=== PATIENT | female | born 1945 | race Caucasian/White ===

== ENCOUNTER 2018-06-27 09:01 | Inpatient (IN) ==
[2018-06-27] MEDS ORDERED: *HR* LORazepam 2 MG/ML VIAL IVP ONE ×4 (09:20→19:26)
--- NOTE | 2018-06-27 09:29 | Emergency Department Note ---
Disposition Clinical Impression: Dilated bile duct Abdominal pain Qualifiers: Abdominal location: right upper quadrant Qualified Code(s): R10.11 - Right upper quadrant pain Disposition: Admitted As Inpatient Time of Disposition: 12:15 General Adult HPI - General Chief complaint: ED Abdominal Pain Stated complaint: abd pain Time Seen by Provider: 06/27/18 09:06 Source: patient Mode of arrival: ambulatory Limitations: no limitations Nursing Notes Reviewed: Yes Vital Signs Reviewed: Yes - History of Present Illness HPI Narrative: 73 year old female with history of diabetes, stroke and anxiety presents with abdominal pain. Patient stated she has abdomen uncomfortable and burping for a while. In the past few days patient felt the symptoms getting worse. Associate with nausea. No vomiting. Pt reported poor appetite and losing weight in the past one week. Last meal was last night. Pt only ate some jello. Patient also complained of left side chest uncomfortable associate with shortness of breath this morning. Pt had appendiectomy and cholecystectomy years ago. No chills and fever. Daughter stated patient moved into her house 3 months ago. Patient went through a lot of stress recently. Psychiatrist took off Tramadol and Klonopin from her a month ago. Pt is on Plavix for stroke. Pt will have breast biopsy in one week. Onset (ago): day(s) (2) Location: abdomen Radiation: non-radiation Pain Scale: 7 - Related Data Home Medications Medication Instructions Recorded Confirmed Buspirone HCl [Buspar] 10 mg PO BID 04/15/18 04/15/18 Clopidogrel Bisulfate [Plavix] 75 mg PO 04/15/18 Dicyclomine Hcl [Bentyl] 20 mg PO 04/15/18 Esomeprazole Magnesium [Nexium] 40 mg PO 04/15/18 Fluticasone Propionate Nasal 120 spray NS 04/15/18 [Flonase] Gabapentin [Gralise] 300 mg PO 04/15/18 Loratadine 04/15/18 Sitagliptin Phosphate [Januvia] 50 mg PO 04/15/18 Allergies Allergy/AdvReac Type Severity Reaction Status Date / Time aspirin Allergy See Verified 04/15/18 10:01 Comments codeine Allergy See Verified 04/15/18 10:01 Comments morphine Allergy See Verified 04/15/18 10:01 Comments Penicillins [PCN] Allergy See Verified 04/15/18 10:01 Comments Constitutional: Denies: fever, chills Eyes: Denies: eye pain ENT ED: Denies: ear pain Cardiovascular: Denies: chest pain Respiratory: Denies: cough Gastrointestinal: Reports: abdominal pain, nausea. Denies: vomiting, diarrhea Genitourinary: Denies: urgency Musculoskeletal: Denies: back pain Integumentary: Denies: rash Neurological: Denies: headache Psychiatric: Denies: anxiety Endocrine: Denies: fatigue Hematological/Lymphatic: Denies: easy bleeding Allergic/Immunologic: Denies: facial swelling Past Medical History - Past Medical History Medical history: Reports: diabetes, hypertension Psychiatric history: Reports: anxiety, depression ATM MECHANIC history: Reports: no ATM MECHANIC history - Social History Smoking Status: 2nd Hand Smoke Exposure Smokeless Tobacco Status: No Alcohol use: Reports: none Drug use: Reports: none Physical Exam - General Limitations: no limitations General appearance: alert - Head Head exam: atraumatic - Eye Eye exam: Present: normal appearance - ENT ENT exam: normal exam - Neck Neck exam: Present: normal inspection - Chest Chest inspection: Present: normal inspection - Respiratory Respiratory exam: Present: normal lung sounds bilaterally - Cardiovascular Cardiovascular exam: Present: regular rate - Abdominal Exam Abdominal exam: Present: soft, tenderness Abdominal tenderness: Present: RUQ, RLQ - Extremities Exam Extremities exam: Present: normal inspection, full ROM. Absent: tenderness - Back Exam Back exam: Present: normal inspection - Neurological Exam Neurological exam: Present: alert, oriented X3 - Psychiatric Psychiatric exam: Present: normal affect - Skin Skin exam: Present: warm, intact Course Vital Signs Temperature 98.1 F 06/27/18 09:03 Pulse Rate 81 06/27/18 09:03 Respiratory Rate 18 06/27/18 09:03 Blood Pressure 145/81 06/27/18 09:03 O2 Sat by Pulse Oximetry 95 06/27/18 09:03 Temperature 97.7 F 06/27/18 19:03 Pulse Rate 92 06/27/18 19:03 Respiratory Rate 16 06/27/18 19:03 Blood Pressure 141/91 06/27/18 19:03 O2 Sat by Pulse Oximetry 95 06/27/18 19:03 Oxygen Delivery Oxygen Delivery Room Air Medical Decision Making - MDM Narrative Medical decision making narrative: 73 year old female presents with worsening abdominal pain for a week. Associate with burping, nausea and poor appetite. No chills and fever. History of diabetes, stroke, anxiety, cholecystectomy and appediectomy. Physical exam: pt seems anxious, bilateral lungs are clear, abdomen soft, RUQ and RLQ tender to palpation. Labs: normal white cell, normal liver enzyme. abdomen CT: dilated bile duct, maligant of ampullary is not excluded. MRCP is suggested. Dr. Lynch has seen the patient and agrees to admit patient for persistent abdominal pain, decreasing appetite. Spoke with GI dr. Hillman, pt will be on NPO. She will have MRCP today. - Lab Data Result diagrams: 06/27/18 09:20 06/27/18 09:20 Lab Results 06/27/18 06/27/18 06/27/18 Range/Units 09:20 09:20 09:20 WBC 5.5 (4.3-11.1) K/mcL RBC 4.98 H (3.82-4.97) M/mcL Hgb 12.8 (11.5-15.4) g/dL Hct 39.9 (35.3-44.9) % MCV 80.1 L (83.0-100.0) fL MCH 25.7 L (28.0-33.3) pg MCHC 32.1 (31.6-35.5) g/dL RDW 15.9 H (11.5-14.5) % Plt Count 242 (140-400) K/mcL MPV 8.6 L (9.4-12.4) fL Immature Gran % 0.2 (0-4) % Seg Neutrophils % 41.6 % Lymphocytes % 43.0 % Monocytes % 11.7 % Eosinophils % 2.6 % Basophils % 0.9 % Neutrophils # 2.3 (1.6-8.9) K/mcL Lymphocytes # 2.4 (0.6-4.6) K/mcL Monocytes # 0.6 (0.0-1.3) K/mcL Eosinophils # 0.1 (0.0-0.6) K/mcL Basophils # 0.1 (0.0-0.2) K/mcL Sodium 139 (136-145) mEq/L Potassium 4.1 (3.5-5.1) mEq/L Chloride 104 (98-107) mEq/L Carbon Dioxide 23 (23-29) mEq/L BUN 6 L (8-23) mg/dL Creatinine 0.56 L (0.60-1.20) mg/dL Est GFR ( Amer) > 60 (> 60) Est GFR (Non-Af Amer) > 60 (> 60) BUN/Creatinine Ratio 11 (6-26) Glucose 125 H (70-105) mg/dL Est Mean Plasma Glucose 154 mg/dl Hemoglobin A1c 7.0 H ( - 5.6) % Calculated Osmolality 287 (280-300) Calcium 9.7 (8.6-10.3) mg/dL Total Bilirubin 0.6 (0.3-1.0) mg/dL AST 20 (13-39) Units/L ALT 24 (7-52) Units/L Alkaline Phosphatase 69 (34-104) Units/L Troponin I < 0.03 (< 0.04) ng/mL Serum Total Protein 7.3 (6.4-8.9) g/dL Albumin 4.6 (3.5-5.7) g/dL Globulin 2.7 (2.4-3.5) g/dL Albumin/Globulin Ratio 1.7 (1.1-2.2) Lipase 22 (11-82) Units/L Urine Color (Yellow) Urine Clarity (Clear) Urine pH (5.0-8.0) pH Units Ur Specific [place] (1.010-1.025) Urine Protein (Neg-Trace) mg/dL Urine Glucose (UA) (Normal) mg/dL Urine Ketones (Negative) mg/dL Urine Blood (Negative) Urine Nitrite (Negative) Urine Bilirubin (Negative) Urine Urobilinogen (Normal) mg/dL Ur Leukocyte Esterase (Negative) Ur Culture Indicated? (NO) 06/27/18 Range/Units 11:36 WBC (4.3-11.1) K/mcL RBC (3.82-4.97) M/mcL Hgb (11.5-15.4) g/dL Hct (35.3-44.9) % MCV (83.0-100.0) fL MCH (28.0-33.3) pg MCHC (31.6-35.5) g/dL RDW (11.5-14.5) % Plt Count (140-400) K/mcL MPV (9.4-12.4) fL Immature Gran % (0-4) % Seg Neutrophils % % Lymphocytes % % Monocytes % % Eosinophils % % Basophils % % Neutrophils # (1.6-8.9) K/mcL Lymphocytes # (0.6-4.6) K/mcL Monocytes # (0.0-1.3) K/mcL Eosinophils # (0.0-0.6) K/mcL Basophils # (0.0-0.2) K/mcL Sodium (136-145) mEq/L Potassium (3.5-5.1) mEq/L Chloride (98-107) mEq/L Carbon Dioxide (23-29) mEq/L BUN (8-23) mg/dL Creatinine (0.60-1.20) mg/dL Est GFR ( Amer) (> 60) Est GFR (Non-Af Amer) (> 60) BUN/Creatinine Ratio (6-26) Glucose (70-105) mg/dL Est Mean Plasma Glucose mg/dl Hemoglobin A1c ( - 5.6) % Calculated Osmolality (280-300) Calcium (8.6-10.3) mg/dL Total Bilirubin (0.3-1.0) mg/dL AST (13-39) Units/L ALT (7-52) Units/L Alkaline Phosphatase (34-104) Units/L Troponin I (< 0.04) ng/mL Serum Total Protein (6.4-8.9) g/dL Albumin (3.5-5.7) g/dL Globulin (2.4-3.5) g/dL Albumin/Globulin Ratio (1.1-2.2) Lipase (11-82) Units/L Urine Color Yellow (Yellow) Urine Clarity Clear (Clear) Urine pH 6.5 (5.0-8.0) pH Units Ur Specific [place] > 1.030 H (1.010-1.025) Urine Protein Negative (Neg-Trace) mg/dL Urine Glucose (UA) Normal (Normal) mg/dL Urine Ketones Negative (Negative) mg/dL Urine Blood Negative (Negative) Urine Nitrite Negative (Negative) Urine Bilirubin Negative (Negative) Urine Urobilinogen Normal (Normal) mg/dL Ur Leukocyte Esterase Negative (Negative) Ur Culture Indicated? NO (NO) - Radiology Data Radiology results reviewed: Yes I reviewed the patient's radiology results. FINDINGS: Lower Chest: The lung bases are clear. Organs: There is mild diffuse low-attenuation of the liver. The gallbladder has been surgically removed. There is mild intrahepatic biliary ductal dilatation. The common bile duct is also dilated and measures 10 mm. The pancreas appears unremarkable. The spleen and adrenal glands are also unremarkable. There is symmetric enhancement of the kidneys. No hydronephrosis is seen. GI/Bowel: Evaluation of the bowel is limited as no enteric contrast was given. No dilated loops of bowel are seen. I do not see a dilated appendix. There is scattered diverticular disease involving the colon but no findings to suggest active inflammation. Pelvis: No pelvic masses or fluid collections are seen. Peritoneum/Retroperitoneum: The abdominal aorta is not aneurysmal. There are shotty mesenteric and retroperitoneal lymph nodes but no lymphadenopathy is seen. Bones/Soft Tissues: No acute bony abnormalities are noted. CT/CT abd pelvis w iv no oral IMPRESSION: 1. Mild intrahepatic and moderate extrahepatic biliary ductal dilatation. This can be seen in a postcholecystectomy state. However, I would recommend correlation with liver function studies. An ampullary malignancy cannot be excluded. Further evaluation with ERCP or MRCP is suggested if clinically warranted. 2. Mild hepatic steatosis. 3. Diverticulosis without obvious inflammation. D/ / Jem Padron MD / Jem Padron MD Interpreting Provider: Jem Padron MD Attestation Statement - Attestation Attestation: Medical screening examination/treatment/procedure(s) were conducted as a shared visit with non-physician practitioner(s) and myself. I personally evaluated the patient during the encounter. Patient presenting for generalized abdominal pain as well as decreased appetite. Patient overall symptoms been getting worse over the last several days. Patient does have previous cholecystectomy. Patient does have pain that is worse in the right upper quadrant with mild tenderness without rebound or guarding.. She will undergo further blood work as well as CT scan imaging. CT with concern for biliary duct dilation. Given the patient's continued symptoms bright upper quadrant abdominal pain as well as decreased appetite and not able to tolerate by mouth with the emergency department, patient will be admitted for further workup. Patient case was discussed with GI. Patient will undergo further testing as indicated by specialist.
[2018-06-27] MEDS ORDERED: Isovue-370 500 ML BOTTLE IVP ONE (09:36)
[2018-06-27 09:56] LABS: Basophils # 0.1 K/mcL (0.0-0.2); Basophils % 0.9 %; Eosinophils # 0.1 K/mcL (0.0-0.6); Eosinophils % 2.6 %; Hematocrit 39.9 % (35.3-44.9); Hemoglobin 12.8 g/dL (11.5-15.4); Immature Granulocytes % 0.2 % (0-4); Lymphocytes # 2.4 K/mcL (0.6-4.6); Mean Corpuscular HGB Conc 32.1 g/dL (31.6-35.5); Mean Corpuscular Hemoglobin 25.7 pg (28.0-33.3); Mean Corpuscular Volume 80.1 fL (83.0-100.0); Mean Platelet Volume 8.6 fL (9.4-12.4); Monocytes # 0.6 K/mcL (0.0-1.3); Monocytes % 11.7 %; Neutrophils # 2.3 K/mcL (1.6-8.9); Platelet Count 242 K/mcL (140-400); Red Blood Count 4.98 M/mcL (3.82-4.97); Red Cell Distribution Width 15.9 % (11.5-14.5); Segmented Neutrophils % 41.6 %
[2018-06-27 10:03] LABS: Alanine Aminotransferase 24 Units/L (7-52); Albumin 4.6 g/dL (3.5-5.7); Albumin/Globulin Ratio 1.7 (1.1-2.2); Alkaline Phosphatase 69 Units/L (34-104); Aspartate Amino Transferase 20 Units/L (13-39); BUN/Creatinine Ratio 11 (6-26); Bilirubin,Total 0.6 mg/dL (0.3-1.0); Blood Urea Nitrogen 6 mg/dL (8-23); Calcium 9.7 mg/dL (8.6-10.3); Carbon Dioxide 23 mEq/L (23-29); Chloride 104 mEq/L (98-107); Globulin 2.7 g/dL (2.4-3.5); Glucose 125 mg/dL (70-105); Lipase 22 Units/L (11-82); Osmolality,Calculated 287 (280-300); Potassium 4.1 mEq/L (3.5-5.1); Sodium 139 mEq/L (136-145); Total Protein 7.3 g/dL (6.4-8.9); Troponin I < 0.03 ng/mL (< 0.04); eGFR For Non-African Americans > 60 (> 60)
--- NOTE | 2018-06-27 11:42 | Electrocardiograph Report ---
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
[2018-06-27] MEDS ORDERED: *HR* OxyCODONE/APAP 5/325 TABLET PO ONE (11:50)
[2018-06-27 11:59] LABS: Bilirubin,Urine Negative (Negative); Blood,Urine Negative (Negative); Clarity,Urine Clear (Clear); Color,Urine Yellow (Yellow); Glucose,Urine (UA) Normal (Normal); Ketones,Urine Negative (Negative); Leukocyte Esterase,Urine Negative (Negative); Nitrite,Urine Negative (Negative); PH,Urine 6.5 pH Units (5.0-8.0); Protein,Urine Negative (Neg-Trace); Specific Gravity,Urine > 1.030 (1.010-1.025); Urobilinogen,Urine Normal (Normal)
[2018-06-27] MEDS ORDERED: *HR* Propofol 200 MG/20 ML VIAL IVP ONE (13:36)
[2018-06-27] MEDS ORDERED: Lidocaine -MPF 2% 2 ML VIAL ONE (13:37)
[2018-06-27] MEDS ORDERED: Ondansetron 4 MG/2 ML VIAL ONE (13:45)
--- NOTE | 2018-06-27 14:21 | Anesthesia Evaluation PreOp ---
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 (3 years ago,), Other (left hand paresthesia) Other Medical History: Diabetes Type II, Other (Anxiety) Anesthesia History: No Prior Anesthetic Complications : No Alcohol Use: none Drug use: none Medications and Allergies Azithromycin [Azithromycin 6-Tab Pack] 250 mg PO PER PKG DI #6 tab 04/15/18 [Rx] Buspirone HCl [Buspar] 10 mg PO BID 04/15/18 [History] Clopidogrel Bisulfate [Plavix] 75 mg PO 04/15/18 [History] Dicyclomine Hcl [Bentyl] 20 mg PO 04/15/18 [History] Esomeprazole Magnesium [Nexium] 40 mg PO 04/15/18 [History] Fluticasone Propionate Nasal [Flonase] 120 spray NS 04/15/18 [History] Gabapentin [Gralise] 300 mg PO 04/15/18 [History] Loratadine 04/15/18 [History] Promethazine/Dextromethorphan [Promethazine-Dm Syrup] 5 ml PO Q6HR PRN #120 ml 04/15/18 [Rx] Sitagliptin Phosphate [Januvia] 50 mg PO 04/15/18 [History] methylPREDNISolone [Medrol] 4 mg PO TAPER #21 tablet 04/15/18 [Rx] Allergy/AdvReac Type Severity Reaction Status Date / Time aspirin Allergy See Verified 04/15/18 10:01 Comments codeine Allergy See Verified 04/15/18 10:01 Comments morphine Allergy See Verified 04/15/18 10:01 Comments Penicillins [PCN] Allergy See Verified 04/15/18 10:01 Comments - Meds/Allergy Pre-op Review Medications Reviewed: Yes Allergies Reviewed: Yes Beta Blockers on Current Med List: No Anesthesia Results - Labs 06/27/18 09:20 06/27/18 09:20 - Imaging EKG: report reviewed (SR) Anesthesia Exam O2 Sat Height 1.57 m Height 1.57 m Weight 65.771 kg Weight 65.771 kg O2 Sat by Pulse Oximetry 95 O2 Sat by Pulse Oximetry 95 O2 Sat by Pulse Oximetry 95 Vital Signs Temp Pulse Resp BP Pulse Ox 98.1 F 81 18 145/81 95 06/27/18 09:03 06/27/18 09:03 06/27/18 09:03 06/27/18 09:03 06/27/18 09:03 Height: 5'2 Weight: 145 lbs NPO (# of Hours): MN Pain Scale: 0 - HEENT Pupil (Motor): Pupils equal, EOMI Mallampati: III Teeth: Edentulous (dentures upper) Oral Opening: Less than or equal to 3 - HYPERCIL CORE TRANSFORMER ASSEMBLER LOC: Oriented HYPERCIL CORE TRANSFORMER ASSEMBLER Motor: Normal RUE, Normal LUE, Normal RLE, Normal LLE, Normal Face HYPERCIL CORE TRANSFORMER ASSEMBLER Sensory: Normal: RUE, LUE, LLE, Face, Deficit: RLE (paresthesia) - Cardiac Rhythm: Regular Murmur: None JVD: No Carotid Bruit: No - Pulmonary Breath Sounds: bilateral Clear Respiratory Effort: Symmetrical Anesthesia Assess/Plan ASA Score: 3 (HTN DM CVA) Level of consciousness: Cooperative, Oriented Anesthetic Plan: MAC Autologous Blood: No Monitoring Plan: Standard Monitors Recovery Plan: Other (Discussed MAC, agrees to proceed)
--- NOTE | 2018-06-27 15:15 | Internal Med History&Physical ---
Date of Encounter: 06/27/18 Time of Encounter: 13:00 Internal Medicine - H&P: HPI Chief complaint: abdomen pain History of present illness: 73 year old female with history of diabetes, stroke and anxiety presents with abdominal pain. Patient stated she has been having abdominal pain associated with nausea with no vomiting as well as poor appetite and decreased oral intake since Tuesday. The patient is status post cholecystectomy however CAT scan of the abdomen relieved dilated common bile duct. at the bedside stated that the mother have an anxiety and anxiety issue since she moved into her house about 3 months ago. the case was discussed with GI by the ER attending, however MRCP that was recommended by GI was offered as an outpatient , the family preferred to have it completed an inpatient since the patient continued to have intractable abdominal pain and was not able to eat for almost a week. The patient was admitted for further evaluation and management Past Med Surg Social Fam HX - Past Medical History Medical history: diabetes, hypertension Psychiatric history: anxiety, depression - Social History Smoking Status: 2nd Hand Smoke Exposure Smokeless Tobacco Status: No Alcohol use: none Drug use: none Internal Medicine - H&P: Meds Buspirone HCl [Buspar] 10 mg PO BID 04/15/18 [History] Clopidogrel Bisulfate [Plavix] 75 mg PO DAILY 04/15/18 [History] Dicyclomine Hcl [Bentyl] 20 mg PO QID PRN 04/15/18 [History] Esomeprazole Magnesium [Nexium] 40 mg PO 04/15/18 [History] Fluticasone Propionate Nasal [Flonase] 120 spray NS 04/15/18 [History] Loratadine 04/15/18 [History] Aspirin [Adult Aspirin Regimen] 81 mg PO DAILY 06/27/18 [History] Baclofen [Lioresal] 10 mg PO TID PRN 06/27/18 [History] BuPROPion SR (12 HR) [Wellbutrin SR] 150 mg PO BID 06/27/18 [History] Gabapentin [Neurontin] 300 mg PO TID 06/27/18 [History] Losartan [Cozaar] 25 mg PO DAILY 06/27/18 [History] Metoprolol [Lopressor] 25 mg PO BID 06/27/18 [History] Mirtazapine 7.5 - 15 mg PO HS 06/27/18 [History] Omeprazole [PriLOSEC] 40 mg PO DAILY 06/27/18 [History] Rosuvastatin Calcium [Crestor] 10 mg PO DAILY 06/27/18 [History] SitaGLIPtin [Januvia] 100 mg PO DAILY 06/27/18 [History] Tramadol HCl [Ultram] 50 mg PO TID PRN 06/27/18 [History] Allergy/AdvReac Type Severity Reaction Status Date / Time aspirin Allergy See Verified 04/15/18 10:01 Comments codeine Allergy See Verified 04/15/18 10:01 Comments morphine Allergy See Verified 04/15/18 10:01 Comments Penicillins [PCN] Allergy See Verified 04/15/18 10:01 Comments All Systems PM: A 10-system review of systems was performed and is negative for pertinent findings except as documented above in the HPI. - Constitutional Vitals: Temp Pulse Resp BP Pulse Ox 98.4 F 91 18 129/86 95 06/27/18 14:24 06/27/18 14:24 06/27/18 14:24 06/27/18 14:24 06/27/18 14:24 Exam: General: Acute distress, unable to remain still HEENT: head normocephalic/atraumatic, EOMI, PERRL, sclera anicteric, moist mucus membranes, Neck: Supple, no lymphadenopathy Cardio: RRR, no murmurs, +S1/S2, auscultation difficult d/t patient moaning Pulm: CTAB, no wheezing, rhonchi, rales. Normal respiratory effort, auscultation difficult d/t patient moaning Abdomen: soft, voluntary guarding, active bowel sounds, no rigidity, RLQ and suprapubic tenderness Extremities: No LE edema, no cyanosis or clubbing Neuro: AAOx3, no focal deficit, CN II-XII grossly intact, moves all extremities spontaneously MSK: Strength 5/5 throughout, no visible deformities Skin: clean, dry, intact, no visible rashes Psych: anxious, tearful, appropriately answers questions Internal Med - H&P Results - Labs CBC & Chem 7: 06/29/18 05:02 06/28/18 05:51 Labs: Short CBC 06/27/18 Range/Units 09:20 WBC 5.5 (4.3-11.1) K/mcL Hgb 12.8 (11.5-15.4) g/dL Hct 39.9 (35.3-44.9) % Plt Count 242 (140-400) K/mcL Neutrophils # 2.3 (1.6-8.9) K/mcL BMP 06/27/18 09:20 Sodium 139 Potassium 4.1 Chloride 104 Carbon Dioxide 23 BUN 6 L Creatinine 0.56 L Glucose 125 H Calcium 9.7 Cardiac Enzymes 06/27/18 Range/Units 09:20 Troponin I < 0.03 (< 0.04) ng/mL Liver Function 06/27/18 Range/Units 09:20 Total Bilirubin 0.6 (0.3-1.0) mg/dL AST 20 (13-39) Units/L ALT 24 (7-52) Units/L Alkaline Phosphatase 69 (34-104) Units/L Albumin 4.6 (3.5-5.7) g/dL Urine 06/27/18 Range/Units 11:36 Urine Color Yellow (Yellow) Urine Clarity Clear (Clear) Urine pH 6.5 (5.0-8.0) pH Units Ur Specific [place] > 1.030 H (1.010-1.025) Urine Protein Negative (Neg-Trace) mg/dL Urine Glucose (UA) Normal (Normal) mg/dL - Impressions ITS Impressions Chest X-Ray 06/27/18 09:20 IMPRESSION: No acute cardiopulmonary disease. D/ / 06/27/2018 10:45:29 Braydon Cobian MD / hCanelle Grant Interpreting Provider: Braydon Cobian MD Abdomen/Pelvis CT 06/27/18 09:36 IMPRESSION: 1. Mild intrahepatic and moderate extrahepatic biliary ductal dilatation. This can be seen in a postcholecystectomy state. However, I would recommend correlation with liver function studies. An ampullary malignancy cannot be excluded. Further evaluation with ERCP or MRCP is suggested if clinically warranted. 2. Mild hepatic steatosis. 3. Diverticulosis without obvious inflammation. D/ / Jem Padron MD / Jem Padron MD Interpreting Provider: Jem Padron MD - Assessment and Plan (1) Abdominal pain Current Visit: Yes Status: Acute Assessment and plan: the patient has been complaining abdominal pain , CAT scan of the abdomen was negative except for dilated common bile ductl , the patient is status post ch olecystectomy. GI was consulted and decision was made to admit the patient and proceed with upper endoscopy then MRCP Qualifiers: Abdominal location: right upper quadrant Qualified Code(s): R10.11 - Right upper quadrant pain (2) Dilated bile duct Current Visit: Yes Status: Acute (3) Anxiety Current Visit: Yes Status: Acute Assessment and plan: we'll continue home medication - Time Spent With Patient Total time spent is greater than 50% in coordination of care (as documented) at patient's floor/unit and/or counseling patient:
[2018-06-27] MEDS ORDERED: Dextrose Gel 15 GM/37.5 ML TUBE PO PRN ×2 (17:02)
[2018-06-27] MEDS ORDERED: *HR* Dextrose 50 % in Water (Syg) 50 ML SYRINGE IVP PRN (17:02)
[2018-06-27] MEDS ORDERED: D5% in Water 1,000 ML IVC PRN (17:02)
[2018-06-27] MEDS ORDERED: Ondansetron ODT 4 MG TAB.RAPDIS SL PRN (17:03)
[2018-06-27] MEDS ORDERED: Acetaminophen 325 MG TABLET PO PRN (17:03)
[2018-06-27] MEDS ORDERED: Naloxone 0.4 MG/ML INJ IVP PRN (17:03)
[2018-06-27] MEDS: Insulin LISPRO 300 UNITS/3 ML VIAL SQ SCH ×2 (17:18→21:23)
[2018-06-27] MEDS: 0.9 % Sodium Chloride 1,000 ML IVC SCH (17:20)
[2018-06-27 17:31] LABS: Estimated Average Glucose 154 mg/dl
--- NOTE | 2018-06-27 18:03 | Event Note ---
Date of Encounter: 06/27/18 Time of Encounter: 14:00 Patient seen Full consult to follow. Complaining of pain in the right side of the abdomen. CT with dilated CBD. LFTs are normal. Recommendation: EGD today and also do an MRCP because of dilated CBD.
[2018-06-27] MEDS ORDERED: diazePAM 10 MG/2 ML SYRINGE IVP ONE (19:27)
[2018-06-27] MEDS: *HR* HYDROcodone/Acet 5/325 mg TABLET PO PRN (19:57)
[2018-06-28] MEDS: 0.9 % Sodium Chloride 1,000 ML IVC SCH (03:37)
[2018-06-28 06:08] LABS: Basophils % 0.6 %; Eosinophils # 0.1 K/mcL (0.0-0.6); Eosinophils % 1.9 %; Hematocrit 35.9 % (35.3-44.9); Hemoglobin 11.4 g/dL (11.5-15.4); Immature Granulocytes % 0.4 % (0-4); Lymphocytes # 1.7 K/mcL (0.6-4.6); Lymphocytes % 32.6 %; Mean Corpuscular HGB Conc 31.8 g/dL (31.6-35.5); Mean Corpuscular Hemoglobin 25.7 pg (28.0-33.3); Mean Platelet Volume 8.3 fL (9.4-12.4); Monocytes # 0.6 K/mcL (0.0-1.3); Monocytes % 10.3 %; Neutrophils # 2.9 K/mcL (1.6-8.9); Platelet Count 196 K/mcL (140-400); Red Blood Count 4.43 M/mcL (3.82-4.97); Red Cell Distribution Width 16.1 % (11.5-14.5); Segmented Neutrophils % 54.2 %
[2018-06-28 06:15] LABS: INR 1.2
[2018-06-28 06:27] LABS: Alanine Aminotransferase 19 Units/L (7-52); Albumin 4.1 g/dL (3.5-5.7); Albumin/Globulin Ratio 2.1 (1.1-2.2); Alkaline Phosphatase 71 Units/L (34-104); Aspartate Amino Transferase 17 Units/L (13-39); BUN/Creatinine Ratio 13 (6-26); Bilirubin,Total 0.6 mg/dL (0.3-1.0); Blood Urea Nitrogen 8 mg/dL (8-23); Carbon Dioxide 25 mEq/L (23-29); Chloride 103 mEq/L (98-107); Chol/HDL Ratio 2.2 (0-4.9); Cholesterol 97 mg/dL (< 200); Glucose 129 mg/dL (70-105); HDL Cholesterol 44 mg/dL (40-59); LDL Cholesterol,Calculated 37 mg/dL (0-99); Magnesium 1.7 mg/dL (1.6-2.6); Osmolality,Calculated 286 (280-300); Potassium 3.9 mEq/L (3.5-5.1); Sodium 138 mEq/L (136-145); Total Protein 6.1 g/dL (6.4-8.9); Triglycerides 82 mg/dL (< 150); eGFR For Non-African Americans > 60 (> 60)
[2018-06-28] MEDS ORDERED: *HR* LORazepam 2 MG/ML VIAL IVP ONE ×2 (06:30→09:49)
[2018-06-28] MEDS ORDERED: Baclofen 10 MG TABLET PO PRN (06:56)
--- NOTE | 2018-06-28 09:16 | Internal Med Progress Note ---
<Arthur Lanier - Last Filed: 06/28/18 14:39> Hospitalist Progress Note - Encounter Date of Encounter: 06/28/18 - Exam Vitals: Temp Pulse Resp BP Pulse Ox 98.3 F 94 15 147/78 94 06/28/18 14:19 06/28/18 14:19 06/28/18 14:19 06/28/18 14:19 06/28/18 14:19 - Assessment and Plan (1) Abdominal pain Current Visit: Yes Status: Acute (2) Dilated bile duct Current Visit: Yes Status: Acute (3) Anxiety Current Visit: Yes Status: Acute - Time Spent with Patient Total time spent is greater than 50% in coordination of care (as documented) at patient's floor/unit and/or counseling patient: Internal Medicine: Result - Labs CBC & Chem 7: 06/28/18 05:51 06/28/18 05:51 Labs: Short CBC 06/28/18 Range/Units 05:51 WBC 5.3 (4.3-11.1) K/mcL Hgb 11.4 L (11.5-15.4) g/dL Hct 35.9 (35.3-44.9) % Plt Count 196 (140-400) K/mcL Neutrophils # 2.9 (1.6-8.9) K/mcL BMP 06/28/18 05:51 Sodium 138 Potassium 3.9 Chloride 103 Carbon Dioxide 25 BUN 8 Creatinine 0.60 Glucose 129 H Calcium 9.0 Liver Function 06/28/18 Range/Units 05:51 Total Bilirubin 0.6 (0.3-1.0) mg/dL AST 17 (13-39) Units/L ALT 19 (7-52) Units/L Alkaline Phosphatase 71 (34-104) Units/L Albumin 4.1 (3.5-5.7) g/dL - ABG Interpretation ABG results: PT/INR, D-dimer PT 13.0 Seconds (9.4-12.1) H 06/28/18 05:51 - Impressions Impressions Abdomen MRI 06/28/18 08:31 IMPRESSION: 1. Although there is extrahepatic biliary ductal dilatation, this is likely related to cholecystectomy as there is no evidence of choledocholithiasis. 2. Moderate to severe hepatic steatosis. D/ / Duong Dalton MD / Duong Dalton MD Interpreting Provider: Duong Dalton MD Consult Discharge Plan - Plan Referrals: Kalpesh Mc MD [Primary Care Provider] - - Attending Attestation I examined this patient and my medical decision-making was reviewed with the Resident Physician on 06/28/18. I agree with the documented findings, disposition and treatment plan as described except to the extent set forth below. Ms Farley is currently admitted for acute intractable abdominal pain. She remains moderate to high risk due to potential for worsening clinical status. Ms Farley is very uncomfortable this AM. She is having a lot of abd pain and says it is different. Feels lower on R side now. No fever or chills. No CP. Anxious about symptoms. Exam Alert. Anxious and restless. Mucus membranes dry Heart reg and not tachy Lungs clear Abd not distended. Bowel sounds faint. Soft. Voluntary guarding. Tender R side and suprapubic area. No edema Moves all extremities I/P 1. Abd pain - continues. To have MRCP today. Check lactate. GI eval. 2. Anxiety - additional Ativan given. 3. HTN 4. Dilated CBD - MRCP today. Further diagnoses and plan as above. Pt here for 2 midnights and continues to have symptoms. Will make inpatient. <Halina Ledezma - Last Filed: 06/28/18 20:35> Hospitalist Progress Note - Encounter Date of Encounter: 06/28/18 Time of Encounter: 09:07 - Subjective Interval History: Examined this morning at bedside. She appears acutely distressed, moaning, clutching her abdomen, and writhing around in bed unable to remain still. She is tearful and reports her stomach has never hurt this badly before. Reports the pain is in RLQ, some LLQ. States she is having chest pain and some shortness of breath, which typically occurs when she is anxious and admits to feeling anxious at this time. - Exam Vitals: Temp Pulse Resp BP Pulse Ox 98.6 F 87 15 142/81 92 06/28/18 07:09 06/28/18 07:09 06/28/18 07:09 06/28/18 07:09 06/28/18 07:09 Exam: General: Acute distress, unable to remain still HEENT: head normocephalic/atraumatic, EOMI, PERRL, sclera anicteric, moist mucus membranes, Neck: Supple, no lymphadenopathy Cardio: RRR, no murmurs, +S1/S2, auscultation difficult d/t patient moaning Pulm: CTAB, no wheezing, rhonchi, rales. Normal respiratory effort, auscultation difficult d/t patient moaning Abdomen: soft, voluntary guarding, active bowel sounds, no rigidity, RLQ and suprapubic tenderness Extremities: No LE edema, no cyanosis or clubbing Neuro: AAOx3, no focal deficit, CN II-XII grossly intact, moves all extremities spontaneously MSK: Strength 5/5 throughout, no visible deformities Skin: clean, dry, intact, no visible rashes Psych: anxious, tearful, appropriately answers questions - Assessment and Plan (1) Dilated bile duct Current Visit: Yes Status: Acute Assessment and Plan: Abdomen MRI and CT show extrahepatic biliary duct dilatation most likely d/t cholecystectomy, no evidence of choledocholithiasis--ampullary malignancy cannot be ruled out; hepatic steatosis. LFT's are wnl. MRCP performed 06/28 (2) Abdominal pain Current Visit: Yes Status: Acute Assessment and Plan: Afebrile, no leukocytosis. LFTs wnl. Lipase wnl (22). Lactic acid wnl (0.7). Abdomen MRI and CT show extrahepatic biliary duct dilatation most likely d/t cholecystectomy, no evidence of choledocholithiasis--ampullary malignancy cannot be ruled out; hepatic steatosis. Non-contrast study limited evaluation of bowels, scattered diverticular disease of colon, but no findings suggesting acute inflammation. CXR negative for acute cardiopulmonary disease. MRCP performed 06/[address] Hillman. EGD with removal of esophageal polyp and biopsy of gastric polyps performed 06/[address] Hillman. Etiology unclear. Abdomen w/u has been negative thus far for infectious, inflammatory, or structural etiologies. Per [id number]-ef-avt, patient has been taking her 's morphine/pain meds. Abdominal pain may be d/t constipation and cramping +/- withdrawal from opiates. Hx of anxiety may be contributing. - PRN Bentyl for abdominal cramping and PRN tylenol for pain, will concentrate on avoiding opiate pain meds ([place] 5-325mg Q6H for severe pain PRN). - Zofran Q6H for nausea, avoiding phergan. - Started Senna Plus bowel regimen. - Famotidine 20 mg PO BID started, discontinued Omeprazole per GI recs. (3) Anxiety Current Visit: Yes Status: Acute Assessment and Plan: Follows [facility] as outpatient; Tramadol and Klonopin discontinued approximately one month ago. Increased anxiety over last 3 months, patient moved in with her son and [id number]. Possible benzodiazepine withdrawal complicating known h/o anxiety vs adjustment disorder? - Continue home Bupropion and Buspar. - Avoiding benzodiazepine use, started Hydroxyzine 10 mg PO TID PRN. - Psychiatry consult placed, recs appreciated. (4) DM2 (diabetes mellitus, type 2) Current Visit: Yes Status: Acute Assessment and Plan: Insulin sliding scale and diabetic diet DVT Prophylaxis: EPCDs. Holding plavix for upcoming breast biopsy next week. - Time Spent with Patient Total time spent is greater than 50% in coordination of care (as documented) at patient's floor/unit and/or counseling patient: Internal Medicine: Result - Labs CBC & Chem 7: 06/28/18 05:51 06/28/18 05:51 Labs: Short CBC 06/27/18 06/28/18 Range/Units 09:20 05:51 WBC 5.5 5.3 (4.3-11.1) K/mcL Hgb 12.8 11.4 L (11.5-15.4) g/dL Hct 39.9 35.9 (35.3-44.9) % Plt Count 242 196 (140-400) K/mcL Neutrophils # 2.3 2.9 (1.6-8.9) K/mcL BMP 06/27/18 06/28/18 09:20 05:51 Sodium 139 138 Potassium 4.1 3.9 Chloride 104 103 Carbon Dioxide 23 25 BUN 6 L 8 Creatinine 0.56 L 0.60 Glucose 125 H 129 H Calcium 9.7 9.0 Cardiac Enzymes 06/27/18 Range/Units 09:20 Troponin I < 0.03 (< 0.04) ng/mL Liver Function 06/27/18 06/28/18 Range/Units 09:20 05:51 Total Bilirubin 0.6 0.6 (0.3-1.0) mg/dL AST 20 17 (13-39) Units/L ALT 24 19 (7-52) Units/L Alkaline Phosphatase 69 71 (34-104) Units/L Albumin 4.6 4.1 (3.5-5.7) g/dL Urine 06/27/18 Range/Units 11:36 Urine Color Yellow (Yellow) Urine Clarity Clear (Clear) Urine pH 6.5 (5.0-8.0) pH Units Ur Specific [place] > 1.030 H (1.010-1.025) Urine Protein Negative (Neg-Trace) mg/dL Urine Glucose (UA) Normal (Normal) mg/dL - ABG Interpretation ABG results: PT/INR, D-dimer PT 13.0 Seconds (9.4-12.1) H 06/28/18 05:51 - Impressions Impressions Chest X-Ray 06/27/18 09:20 IMPRESSION: No acute cardiopulmonary disease. D/ / 06/27/2018 10:45:29 Braydon Cobian MD / Chanelle Grant Interpreting Provider: Braydon Cobian MD Abdomen/Pelvis CT 06/27/18 09:36 IMPRESSION: 1. Mild intrahepatic and moderate extrahepatic biliary ductal dilatation. This can be seen in a postcholecystectomy state. However, I would recommend correlation with liver function studies. An ampullary malignancy cannot be excluded. Further evaluation with ERCP or MRCP is suggested if clinically warranted. 2. Mild hepatic steatosis. 3. Diverticulosis without obvious inflammation. D/ / Jem Padron MD / Jem Padron MD Interpreting Provider: Jem Padron MD <Arthur Lanier - Last Filed: 06/28/18 14:39> (1) Abdominal pain Qualifiers: Abdominal location: right upper quadrant Qualified Code(s): R10.11 - Right upper quadrant pain <Halina Ledezma - Last Filed: 06/28/18 20:35> (2) Abdominal pain Qualifiers: Abdominal location: right upper quadrant Qualified Code(s): R10.11 - Right upper quadrant pain
[2018-06-28] MEDS: BUSPIRONE HCL 10 MG TABLET PO SCH ×2 (09:17→20:00)
[2018-06-28] MEDS: BuPROPion SR (12 HR) 150 MG TABLET PO SCH ×2 (09:17→20:00)
[2018-06-28] MEDS: *HR* HYDROcodone/Acet 5/325 mg TABLET PO PRN ×2 (09:18→15:37)
[2018-06-28] MEDS ORDERED: *HR* FentaNYL (PF) 100 MCG/2 ML VIAL IVP ONE (09:49)
[2018-06-28] MEDS: Aspirin Enteric Coated 81 MG Tablet PO SCH (11:16)
[2018-06-28] MEDS: Insulin LISPRO 300 UNITS/3 ML VIAL SQ SCH ×4 (11:16→19:59)
--- NOTE | 2018-06-28 12:25 | Gastroenterology Consult Note ---
<SimonsDexter Calabrese - Last Filed: 06/28/18 13:06> Date of Encounter: 06/28/18 Time of Encounter: 12:50 - Assessment and plan (1) Dilated bile duct Current Visit: Yes Status: Acute Assessment and plan: CT A/P shows mild intrahepatic and moderate extrahepatic biliary ductal dilatation, which can be seen in a postcholecystectomy state, ampullary malignancy cannot be excluded, mild hepatic steatosis, diverticulosis. EGD completed 06/[address] Hillman showed esophageal and gastric polyps, and major papilla appeared normal. LFTs normal. Check MRCP today. (2) Abdominal pain Current Visit: Yes Status: Acute Assessment and plan: EGD with esophageal and gastric polyps, major papilla appeared normal. Continue PPI. Pain improved today. Could be due to gas/bloating. Recommend changing to Protonix as outpatient due to taking Plavix. There is a potential drug interaction between PPIs and Plavix as both are m etabolized by cytochrome 450 enzymes and especially Plavix require these enzymes to become active. In the presence of PPI, there is a potential for reduced effectiveness of Plavix. Recommend spacing out the PPI and the Plavix (PPI in the morning, and Plavix at night or vice versa). Avoid using PPI if not needed and use other meds such as Zantac. If PPI is needed then avoid omeprazole (Prilosec) and esmoprazole (Nexium) and use other PPIs. Qualifiers: Abdominal location: right upper quadrant Qualified Code(s): R10.11 - Right upper quadrant pain (3) Abdominal bloating Current Visit: Yes Status: Acute Assessment and plan: 1.) Avoid chewing gum or sucking on hard candies (especially sugarless gum or dietetic candies that contain sorbitol). 2.) Eliminate carbonated beverages and reduce foods containing high-fructose corn syrup from your diet. 3.) Avoid milk and milk products, such as soft cheeses 4.) Eat less gas-producing foods such as: Vegetables: brussel sprouts, broccoli, bagels, bananas, cabbage, cauliflower,cucumbers,carrots, celery and onion. Or when eating such foods, you may consider trying [id number]-[id number] gas relief medicines, which may help breakdown the non-absorbable carbohydrates found in these foods. 5.) Exercise helps to stimulate the passage of gas through the digestive tract, consider walking. 6.) Consider trying gldu-mrq-hlkaorc gas relief medicines such as Activated charcoal one tablet with meals or Beano 1-2 tablets or 5-10 drops with meals or Gas-X 1 tablet three times a day with meals or bismuth subsalicylate 524 mg three times a day with meals as needed. - Time Spent With Patient Total time spent is greater than 50% in coordination of care (as documented) at patient's floor/unit and/or counseling patient: GI History of Present Illness - Data of Consult Patient: new to practice Consult date: 06/28/18 Requesting Physician: Arthur Lanier DO - Consult Narrative Reason for consult: Abd pain History of present illness: Ms. Farley is a 73 year old female with PMHx of DM, HTN, CVA, and anxiety presented with abdominal pain with associated nausea. She denies any vomiting. CT A/P shows mild intrahepatic and moderate extrahepatic biliary ductal dilatation, which can be seen in a postcholecystectomy state, ampullary malignancy cannot be excluded, mild hepatic steatosis, diverticulosis. EGD completed yesterday by Dr. Hillman with esophageal gastric polyps, major papilla was normal. Patient complains of gas and bloating that started a "few weeks" prior to admission. Procedures: None NSAIDs: ASA Anticoaguation: Plavix Past Med Surg Social Fam HX - Past Medical History Medical history: diabetes, hypertension Psychiatric history: anxiety, depression - Past Surgical History Surgical History: appendectomy, cholecystectomy, hysterectomy Additional surgical history: Rotator cuff surgery, breast bx sceduled for next week. - Social History Smoking Status: 2nd Hand Smoke Exposure Smokeless Tobacco Status: No Alcohol use: none Drug use: none - Gastrointestinal Gastrointestinal: Present: as per HPI - Constitutional Constitutional: as per HPI - EENT Eyes: as per HPI Ears: Present: as per HPI Nose, mouth and throat: Present: as per HPI - Cardiovascular Cardiovascular ROS: Present: as per HPI - Respiratory Respiratory IM: Present: as per HPI - Genitourinary Genitourinary: Absent: change in color, Urinary frequency - Neurological ROS Neurological GI: Present: as per HPI - Hematologic/Lymphatic Hematologic/Lymphatic pediatric: Present: as per HPI - Musculoskeletal Musculoskeletal ROS GI: Present: as per HPI - Integumentary Integumentary GI: Present: as per HPI - Psychiatric ROS Psychiatric GI: Present: as per HPI - Endocrine Endocrine IM: Present: as per HPI - Constitutional Vitals: Temp Pulse Resp BP Pulse Ox 98.2 F 90 15 144/78 95 06/28/18 11:47 06/28/18 11:47 06/28/18 11:47 06/28/18 11:47 06/28/18 11:47 General appearance: Present: cooperative, A&O X 3, no acute distress, answers questions appropriately - Head Head exam: Present: atraumatic, normocephalic - Eye Eye exam: Present: normal appearance, sclera anicteric - ENT ENT exam: Present: mucous membranes dry - Neck Neck exam general surgery: Present: normal inspection, trachea midline - Respiratory Respiratory exam: Present: CTAB. Absent: rales, rhonchi - Cardiovascular Cardiovascular exam: Present: RRR, +S1, +S2 - GI/Abdominal GI/Abdominal exam: Present: soft, tenderness (mild RUQ), no peritoneal signs. Absent: distended, firm, guarding - Rectal Rectal exam: Present: deferred - Extremities Exam Extremities exam: Present: warm - Neurological Exam Neurological exam: Present: no focal deficits - Psychiatric Psychiatric exam: Present: normal affect, normal mood - Skin Skin exam: Present: dry, intact, normal color, warm Results - Labs CBC & Chem 7: 06/28/18 05:51 06/28/18 05:51 Labs: Last Result 06/28/18 05:51 Calcium 9.0 Triglycerides 82 Entire Visit 06/28/18 06/28/18 06/28/18 05:51 05:51 05:51 Hgb 11.4 L Hct 35.9 PT 13.0 H Total Bilirubin 0.6 AST 17 ALT 19 - ABG ABG results: PT/INR, D-dimer PT 13.0 Seconds (9.4-12.1) H 06/28/18 05:51 - Impressions Impressions Abdomen MRI 06/28/18 08:31 IMPRESSION: 1. Although there is extrahepatic biliary ductal dilatation, this is likely related to cholecystectomy as there is no evidence of choledocholithiasis. 2. Moderate to severe hepatic steatosis. D/ / Duong Dalton MD / Duong Dalton MD Interpreting Provider: Duong Dalton MD Consult Discharge Plan - Plan Referrals: Kalpesh Mc MD [Primary Care Provider] - <Shanel Hillman - Last Filed: 06/29/18 09:06> Date of Encounter: 06/27/18 Time of Encounter: 15:00 - Time Spent With Patient Total time spent is greater than 50% in coordination of care (as documented) at patient's floor/unit and/or counseling patient: GI History of Present Illness - Data of Consult Requesting Physician: Arthur Lanier DO - Consult Narrative History of present illness: Ms. Farley is a 73 year old female - Constitutional Vitals: Temp Pulse Resp BP Pulse Ox 99.0 F 82 15 132/84 96 06/29/18 07:02 06/29/18 07:02 06/29/18 07:02 06/29/18 07:02 06/29/18 07:02 Results - Labs CBC & Chem 7: 06/29/18 05:02 06/29/18 05:02 Labs: Last Result 06/29/18 05:02 Calcium 9.4 Entire Visit 06/29/18 05:02 Hgb 11.7 Hct 37.6 - ABG ABG results: PT/INR, D-dimer PT 13.0 Seconds (9.4-12.1) H 06/28/18 05:51 - Impressions Impressions Abdomen MRI 06/28/18 08:31 IMPRESSION: 1. Although there is extrahepatic biliary ductal dilatation, this is likely related to cholecystectomy as there is no evidence of choledocholithiasis. 2. Moderate to severe hepatic steatosis. D/ / Duong Dalton MD / Duong Dalton MD Interpreting Provider: Duong Dalton MD - Attending Attestation I have personally performed a face to face evaluation on this patient. I have reviewed and agree with the care plan. History and Exam by me shows: Pt seen complaining of pain t has a lot of anxiety issues. On examination: has mild upper and lower quadrant tenderness. A: Abdominal pain dilated CBD. Rec: EGD and if negative then we will do a MRCP
--- NOTE | 2018-06-28 13:12 | Electrocardiograph Report ---
[place] [id number] Test Date: 2018-06-27 Pat Name: Natasha Farley Department: 115 Room: 3A52 Gender: F Home Manager: : 1945 Requested By: Stevan Chacko Order Number: [id number] Reading MD: Eliceo Cadena Measurements Intervals [place] Rate: 79 P: 8 HI: 185 QRS: -1 QRSD: 88 T: 44 QT: 384 QTc: 418 Interpretive Statements SINUS RHYTHM LOW QRS VOLTAGE IN PRECORDIAL LEADS INFERIOR MYOCARDIAL INFARCTION, PROBABLY OLD Electronically Signed On 06-28-2018 13:10:19 EDT by Eliceo Cadena
[2018-06-28] MEDS ORDERED: Ondansetron ODT 4 MG TAB.RAPDIS SL PRN (19:53)
[2018-06-28] MEDS ORDERED: *HR* HYDROcodone/Acet 5/325 mg TABLET PO PRN (20:03)
[2018-06-28] MEDS: Sennosides/Docusate Sodium TABLET PO SCH (21:02)
[2018-06-28] MEDS: Famotidine 20 MG TABLET PO SCH (21:02)
[2018-06-29 05:24] LABS: Basophils % 0.8 %; Eosinophils # 0.1 K/mcL (0.0-0.6); Eosinophils % 3.1 %; Hematocrit 37.6 % (35.3-44.9); Hemoglobin 11.7 g/dL (11.5-15.4); Immature Granulocytes % 0.3 % (0-4); Lymphocytes # 1.9 K/mcL (0.6-4.6); Lymphocytes % 47.1 %; Mean Corpuscular HGB Conc 31.1 g/dL (31.6-35.5); Mean Corpuscular Hemoglobin 25.2 pg (28.0-33.3); Mean Corpuscular Volume 80.9 fL (83.0-100.0); Mean Platelet Volume 8.4 fL (9.4-12.4); Monocytes # 0.6 K/mcL (0.0-1.3); Neutrophils # 1.3 K/mcL (1.6-8.9); Platelet Count 206 K/mcL (140-400); Red Blood Count 4.65 M/mcL (3.82-4.97); Segmented Neutrophils % 33.7 %
[2018-06-29 05:47] LABS: BUN/Creatinine Ratio 11 (6-26); Blood Urea Nitrogen 7 mg/dL (8-23); Calcium 9.4 mg/dL (8.6-10.3); Carbon Dioxide 28 mEq/L (23-29); Chloride 103 mEq/L (98-107); Glucose 133 mg/dL (70-105); Osmolality,Calculated 288 (280-300); Potassium 4.1 mEq/L (3.5-5.1); Sodium 139 mEq/L (136-145); eGFR For Non-African Americans > 60 (> 60)
[2018-06-29] MEDS: BUSPIRONE HCL 10 MG TABLET PO SCH (08:44)
[2018-06-29] MEDS: Sennosides/Docusate Sodium TABLET PO SCH (08:44)
[2018-06-29] MEDS: BuPROPion SR (12 HR) 150 MG TABLET PO SCH (08:44)
[2018-06-29] MEDS: Aspirin Enteric Coated 81 MG Tablet PO SCH (08:44)
[2018-06-29] MEDS: Insulin LISPRO 300 UNITS/3 ML VIAL SQ SCH ×3 (08:44→16:09)
[2018-06-29] MEDS: Famotidine 20 MG TABLET PO SCH (08:44)
--- NOTE | 2018-06-29 11:56 | Consult Note ---
Date of Encounter: 06/29/18 Time of Encounter: 11:52 Assessment & Recommendation (1) Adjustment disorder with anxious mood Current visit: Yes Status: Acute Assessment & Recommendation: Client has had major life changes/stressors and appears to be having trouble adjusting. Denies SI, intent, or plan and does not appear to require inpatient admission at this time. Has an appointment to see a new psychiatrist tomorrow. If she remains hospitalized recommend insuring this gets rescheduled. Client previously took Klonopin with positive results. No AOD history. Given her level of anxiety recommend restarting it at this time. Can start with 0.5mg BID prn and this can be adjusted on an outpatient basis if needed. Client in agreement that a large part of her physical symptomatology is related to her anxiety level and should improve once she starts responding to medication. Call if any questions. History of Present Illness Requesting Physician: Arthur Lanier DO Reason for consult: anxiety History of present illness: Ms. Farley is a 73 year old female who was admitted for abdominal pain and psychiatry was consulted for anxiety. On eval client is very anxious and tearful. States her two months ago and she was forced to move out of the trailer she shared with him and in with her son and [id number]. Having trouble adjusting to life changes. Client states she was taking Klonopin from her home provider but stopped it when she moved in with her son. Has an appointment to see a new psychiatrist tomorrow but has been without her anxiety medication for some time now. Client thinks a large part of her physical discomfort is related to her anxiety. Client denies SI, intent, or plan but feels miserable the way that she is now. Client denies having any AOD issues and states alcohol and drugs have never been a problem for her. Interested in restarting the Klonopin at this time. CC: Arthur Lanier DO Past Med Surg Social Fam HX - Past Medical History Medical history: diabetes, hypertension - Past Psychiatric History Psychiatric history: Reports: anxiety, depression Family psychiatric history: Unknown Family History of Suicide: Unknown - Past Surgical History Surgical History: appendectomy, cholecystectomy, hysterectomy - Social History Smoking Status: 2nd Hand Smoke Exposure Smokeless Tobacco Status: No Alcohol use: none Drug use: none Medications & Allergies Buspirone HCl [Buspar] 10 mg PO BID 04/15/18 [History] Clopidogrel Bisulfate [Plavix] 75 mg PO DAILY 04/15/18 [History] Dicyclomine Hcl [Bentyl] 20 mg PO QID PRN 04/15/18 [History] Esomeprazole Magnesium [Nexium] 40 mg PO 04/15/18 [History] Fluticasone Propionate Nasal [Flonase] 120 spray NS 04/15/18 [History] Loratadine 04/15/18 [History] Aspirin [Adult Aspirin Regimen] 81 mg PO DAILY 06/27/18 [History] Baclofen [Lioresal] 10 mg PO TID PRN 06/27/18 [History] BuPROPion SR (12 HR) [Wellbutrin SR] 150 mg PO BID 06/27/18 [History] Gabapentin [Neurontin] 300 mg PO TID 06/27/18 [History] Losartan [Cozaar] 25 mg PO DAILY 06/27/18 [History] Metoprolol [Lopressor] 25 mg PO BID 06/27/18 [History] Mirtazapine 7.5 - 15 mg PO HS 06/27/18 [History] Omeprazole [PriLOSEC] 40 mg PO DAILY 06/27/18 [History] Rosuvastatin Calcium [Crestor] 10 mg PO DAILY 06/27/18 [History] SitaGLIPtin [Januvia] 100 mg PO DAILY 06/27/18 [History] Tramadol HCl [Ultram] 50 mg PO TID PRN 06/27/18 [History] Allergy/AdvReac Type Severity Reaction Status Date / Time aspirin Allergy See Verified 04/15/18 10:01 Comments codeine Allergy See Verified 04/15/18 10:01 Comments morphine Allergy See Verified 04/15/18 10:01 Comments Penicillins [PCN] Allergy See Verified 04/15/18 10:01 Comments Review of Systems Constitutional: Reports: other Eyes: Denies: eye pain, vision change Ears, Nose, Throat: Denies: ear pain, throat pain, dental pain, hearing loss, congestion Cardiovascular: Denies: chest pain, palpitations, dyspnea on exertion Respiratory: Denies: cough, dyspnea, wheezes Gastrointestinal: Reports: abdominal pain Genitourinary female: Denies: urgency, dysuria, frequency, abnormal menses, dyspareunia Musculoskeletal: Denies: joint swelling, joint pain Integumentary: Denies: rash, lesions, pruritus Neurological: Denies: headache, weakness, numbness, memory loss Endocrine: Denies: fatigue, heat or cold intolerance Hematologic/Lymphatic: Denies: easy bruising, lymphadenopathy Allergic/Immunologic: Denies: urticaria, itchy eyes Psychiatry Exam - Constitutional Vitals: Temp Pulse Resp BP Pulse Ox 97.7 F 100 15 139/79 94 06/29/18 10:25 06/29/18 10:25 06/29/18 10:25 06/29/18 10:25 06/29/18 10:25 General appearance: age & developmentally appropriate - Musculoskeletal Gait: other Station: shaky Strength & Tone: normal for patient - Psychiatric Patient Orientation: Yes Person, Yes Time, Yes Place Level of alertness: Alert Behavior: anxious, tearful Psychomotor activity: Increased Eye Contact: Maintains Eye Contact Mood Description: Anxious Affect description: congruent with mood Speech Volume: Normal Speech pattern: normal rate, normal rhythm, normal tone, fluent, spontaneous Language & Vocabulary: consistent with education Thought Process: Linear Thought Content: No Suicidal ideation, No Homicidal ideation, No Overt delusions Perceptual Disturbances: No Auditory hallucinations, No Visual hallucinations Attention Span Ability: Capable of Focused Attention Memory Description: Grossly Intact Patient Reliability: Reliable Historian Fund of knowledge: Yes abstraction ability, Yes aware of current events Intelligence Estimate: Average Judgment: Fair Insight: Partial Results - Labs Labs: Laboratory Last Values WBC 3.9 K/mcL (4.3-11.1) L 06/29/18 05:02 RBC 4.65 M/mcL (3.82-4.97) 06/29/18 05:02 Hgb 11.7 g/dL (11.5-15.4) 06/29/18 05:02 Hct 37.6 % (35.3-44.9) 06/29/18 05:02 MCV 80.9 fL (83.0-100.0) L 06/29/18 05:02 MCH 25.2 pg (28.0-33.3) L 06/29/18 05:02 MCHC 31.1 g/dL (31.6-35.5) L 06/29/18 05:02 RDW 16.0 % (11.5-14.5) H 06/29/18 05:02 Plt Count 206 K/mcL (140-400) 06/29/18 05:02 MPV 8.4 fL (9.4-12.4) L 06/29/18 05:02 Immature Gran % 0.3 % (0-4) 06/29/18 05:02 Seg Neutrophils % 33.7 % 06/29/18 05:02 47.1 % 06/29/18 05:02 15.0 % 06/29/18 05:02 3.1 % 06/29/18 05:02 0.8 % 06/29/18 05:02 1.3 K/mcL (1.6-8.9) L 06/29/18 05:02 1.9 K/mcL (0.6-4.6) 06/29/18 05:02 0.6 K/mcL (0.0-1.3) 06/29/18 05:02 0.1 K/mcL (0.0-0.6) 06/29/18 05:02 0.0 K/mcL (0.0-0.2) 06/29/18 05:02 PT 13.0 Seconds (9.4-12.1) H 06/28/18 05:51 INR 1.2 06/28/18 05:51 Sodium 139 mEq/L (136-145) 06/29/18 05:02 Potassium 4.1 mEq/L (3.5-5.1) 06/29/18 05:02 Chloride 103 mEq/L (98-107) 06/29/18 05:02 Carbon Dioxide 28 mEq/L (23-29) 06/29/18 05:02 BUN 7 mg/dL (8-23) L 06/29/18 05:02 0.65 mg/dL (0.60-1.20) 06/29/18 05:02 Est GFR ( Amer) > 60 (> 60) 06/29/18 05:02 Est GFR (Non-Af Amer) > 60 (> 60) 06/29/18 05:02 11 (6-26) 06/29/18 05:02 Glucose 133 mg/dL (70-105) H 06/29/18 05:02 POC Glucose 155 mg/dL (70-99) H 06/28/18 19:59 Est Mean Plasma Glucose 154 mg/dl 06/27/18 09:20 7.0 % (-5.6) H 06/27/18 09:20 288 (280-300) 06/29/18 05:02 Lactic Acid 0.7 mmol/L (0.5-2.2) 06/28/18 12:06 Calcium 9.4 mg/dL (8.6-10.3) 06/29/18 05:02 Phosphorus 3.0 mg/dL (2.7-4.5) 06/28/18 05:51 Magnesium 1.7 mg/dL (1.6-2.6) 06/28/18 05:51 0.6 mg/dL (0.3-1.0) 06/28/18 05:51 AST 17 Units/L (13-39) 06/28/18 05:51 ALT 19 Units/L (7-52) 06/28/18 05:51 71 Units/L (34-104) 06/28/18 05:51 < 0.03 ng/mL (< 0.04) 06/27/18 09:20 6.1 g/dL (6.4-8.9) L 06/28/18 05:51 4.1 g/dL (3.5-5.7) 06/28/18 05:51 2.0 g/dL (2.4-3.5) L 06/28/18 05:51 2.1 (1.1-2.2) 06/28/18 05:51 Triglycerides 82 mg/dL (< 150) 06/28/18 05:51 Cholesterol 97 mg/dL (< 200) 06/28/18 05:51 LDL Cholesterol, Calc 37 mg/dL (0-99) 06/28/18 05:51 VLDL Cholesterol, Calc 16 mg/dL (< 31) 06/28/18 05:51 44 mg/dL (40-59) 06/28/18 05:51 2.2 (0-4.9) 06/28/18 05:51 22 Units/L (11-82) 06/27/18 09:20 Yellow (Yellow) 06/27/18 11:36 Clear (Clear) 06/27/18 11:36 6.5 pH Units (5.0-8.0) 06/27/18 11:36 Ur Specific [place] > 1.030 (1.010-1.025) H 06/27/18 11:36 Negative mg/dL (Neg-Trace) 06/27/18 11:36 Normal mg/dL (Normal) 06/27/18 11:36 Negative mg/dL (Negative) 06/27/18 11:36 Negative (Negative) 06/27/18 11:36 Negative (Negative) 06/27/18 11:36 Negative (Negative) 06/27/18 11:36 Normal mg/dL (Normal) 06/27/18 11:36 Ur Leukocyte Esterase Negative (Negative) 06/27/18 11:36 Ur Culture Indicated? NO (NO) 06/27/18 11:36 Consult Discharge Plan - Plan Referrals: Kalpesh Mc MD [Primary Care Provider] -
[2018-06-29] MEDS ORDERED: clonazePAM 0.5 MG TABLET PO PRN (13:35)
--- NOTE | 2018-06-29 13:57 | Discharge Summary ---
<Dexter Beard - Last Filed: 06/29/18 13:44> - NOTES TO OUTPATIENT PROVIDER Notes to Outpatient Provider: Pt having abd pain/nausea/vom. EGD negative. Psych concerned for anxiety related pain. Restarted on prn klonopin per psych, will see new psychiatrist tomorrow. Orders not resulted at time of discharge: Pending orders 06/27/18 14:55 Surgical Pathology [PTH] Routine 06/30/18 04:00 BMP [Basic Metabolic Panel] AM 0400 Complete Blood Count [HEME] AM 0400 07/01/18 04:00 BMP [Basic Metabolic Panel] AM 0400 Complete Blood Count [HEME] AM 0400 Date of Encounter: 06/29/18 Time of Encounter: 10:00 - Discharge Diagnosis (1) Abdominal pain Priority: Primary Status: Acute Qualifiers: Abdominal location: right upper quadrant Qualified Code(s): R10.11 - Right upper quadrant pain (2) Dilated bile duct Priority: Secondary Status: Acute (3) Anxiety Priority: Secondary Status: Acute Hospital course: Ms. Farley is a 73 year old female with history of diabetes, stroke, anxiety who presented to the hospital with abdominal pain status post cholecystectomy. The patient has had nausea, vomiting, abdominal pain with decreased oral intake for several days. She had a CT scan of the abdomen which demonstrated dilated common bile duct. Gastroenterology saw the patient for an EGD which demonstrated polyps found in the esophagus as well as multiple small polyps found in the gastric fundus. GI also recommended an MRCP which was significant for extrahepatic biliary ductal dilation however did not demonstrate any stones. There was a growing concern that many of her symptoms were related to severe anxiety which the patient has been dealing with for quite some time. We did have a psychiatric consult and the psychiatrist agrees the patient does have significant anxiety burden. The psychiatrist did recommend that we restart the patient on Klonopin which may help with some of the symptoms. She is scheduled to see a psychiatrist as an outpatient tomorrow. We will discharge the patient with sufficient anxiety and nausea medications to continue outpatient workup for her above concerns. Patient understands and agrees to plan. Discharge discussed with: patient, nurse, social work, case management - Time Spent with Patient Total time spent providing and/or coordinating discharge services: - Discharge Medications Prescriptions: New clonazePAM [Klonopin] 0.5 mg PO BID PRN 3 Days #6 tablet PRN Reason: Anxiety Ondansetron ODT [Zofran ODT] 4 mg SL Q6HR PRN #30 tab.rapdis PRN Reason: Nausea And Vomiting Sennosides/Docusate Sodium [Senna Plus] 1 each PO BID #30 tablet Continued Buspirone HCl [Buspar] 10 mg PO BID Loratadine Fluticasone Propionate Nasal [Flonase] 120 spray NS Esomeprazole Magnesium [Nexium] 40 mg PO Dicyclomine Hcl [Bentyl] 20 mg PO QID PRN PRN Reason: ABDOMINAL CRAMPING Clopidogrel Bisulfate [Plavix] 75 mg PO DAILY Aspirin [Adult Aspirin Regimen] 81 mg PO DAILY Baclofen [Lioresal] 10 mg PO TID PRN PRN Reason: Muscle Spasm BuPROPion SR (12 HR) [Wellbutrin SR] 150 mg PO BID Gabapentin [Neurontin] 300 mg PO TID Losartan [Cozaar] 25 mg PO DAILY Metoprolol [Lopressor] 25 mg PO BID Mirtazapine 7.5 - 15 mg PO HS Omeprazole [PriLOSEC] 40 mg PO DAILY Rosuvastatin Calcium [Crestor] 10 mg PO DAILY SitaGLIPtin [Januvia] 100 mg PO DAILY Tramadol HCl [Ultram] 50 mg PO TID PRN PRN Reason: Pain Home Medications: Buspirone HCl [Buspar] 10 mg PO BID 04/15/18 [History] Clopidogrel Bisulfate [Plavix] 75 mg PO DAILY 04/15/18 [History] Dicyclomine Hcl [Bentyl] 20 mg PO QID PRN 04/15/18 [History] Esomeprazole Magnesium [Nexium] 40 mg PO 04/15/18 [History] Fluticasone Propionate Nasal [Flonase] 120 spray NS 04/15/18 [History] Loratadine 04/15/18 [History] Aspirin [Adult Aspirin Regimen] 81 mg PO DAILY 06/27/18 [History] Baclofen [Lioresal] 10 mg PO TID PRN 06/27/18 [History] BuPROPion SR (12 HR) [Wellbutrin SR] 150 mg PO BID 06/27/18 [History] Gabapentin [Neurontin] 300 mg PO TID 06/27/18 [History] Losartan [Cozaar] 25 mg PO DAILY 06/27/18 [History] Metoprolol [Lopressor] 25 mg PO BID 06/27/18 [History] Mirtazapine 7.5 - 15 mg PO HS 06/27/18 [History] Omeprazole [PriLOSEC] 40 mg PO DAILY 06/27/18 [History] Rosuvastatin Calcium [Crestor] 10 mg PO DAILY 06/27/18 [History] SitaGLIPtin [Januvia] 100 mg PO DAILY 06/27/18 [History] Tramadol HCl [Ultram] 50 mg PO TID PRN 06/27/18 [History] Ondansetron ODT [Zofran ODT] 4 mg SL Q6HR PRN #30 tab.rapdis 06/29/18 [Rx] Sennosides/Docusate Sodium [Senna Plus] 1 each PO BID #30 tablet 06/29/18 [Rx] clonazePAM [Klonopin] 0.5 mg PO BID PRN 3 Days #6 tablet 06/29/18 [Rx] Allergies/Adverse Reactions: Allergy/AdvReac Type Severity Reaction Status Date / Time aspirin Allergy See Verified 04/15/18 10:01 Comments codeine Allergy See Verified 04/15/18 10:01 Comments morphine Allergy See Verified 04/15/18 10:01 Comments Penicillins [PCN] Allergy See Verified 04/15/18 10:01 Comments Date of admission: 06/28/18 17:43 Primary care physician: Kalpesh Mc MD Consults: 06/28/18 16:00 Consult to Psychiatry [CONS] Routine Consulting Provider: [facility] [place] Reason consult: Other Other reason and/or additional details: Anxiety, adjustment disorder? Medical workup so far negative. Sees [facility] Psych outpatient Time Notified: 16:05 Call Completed: Yes Discharging clinician: Dexter Beard Anticipated date of discharge: 06/29/18 - Constitutional Vitals: Temp Pulse Resp BP Pulse Ox 97.7 F 100 15 139/79 94 06/29/18 10:25 06/29/18 10:25 06/29/18 10:25 06/29/18 10:25 06/29/18 10:25 Exam: General: Acute distress, unable to remain still. Continuously burping HEENT: head normocephalic/atraumatic, EOMI, PERRL, sclera anicteric, moist mucus membranes, Neck: Supple, no lymphadenopathy Cardio: RRR, no murmurs, +S1/S2, auscultation difficult d/t patient moaning Pulm: CTAB, no wheezing, rhonchi, rales. Normal respiratory effort, auscultation difficult d/t patient moaning Abdomen: soft, active bowel sounds, no rigidity, RLQ and suprapubic tenderness Extremities: No LE edema, no cyanosis or clubbing Neuro: AAOx3, no focal deficit, CN II-XII grossly intact, moves all extremities spontaneously MSK: Strength 5/5 throughout, no visible deformities Skin: clean, dry, intact, no visible rashes Psych: anxious, appropriately answers questions - Patient Status Disposition: Home Health Service Functional capacity at discharge: independent ambulation Overall status at discharge: patient is back to baseline - Discharge Instructions Instructions: Acute Abdominal Pain (DC) Follow Up With: Kalpesh Mc MD [Primary Care Provider] - (Web request. Office will call patient with date and time of appointment. Thank you) Alberto Hernandez [Partnered Physician] - 06/30/18 10:10 am Additional Instructions: Continue Klonopin 0.5mg twice a day as needed for anxiety until you see psychiatry tomorrow. Continue all other home medications except hold Plavix for breast biopsy procedure next week. Start Plavix again as per instructions a primary care provider. You can take Zofran as needed per bottle instructions for nausea. Follow-up with gastroenterology as directed in 4-6 weeks. - Diet and Activity Activity: increase activity as tolerated Diet: advance to your usual diet <Arthur Lanier - Last Filed: 06/29/18 18:26> Orders not resulted at time of discharge: Pending orders 06/27/18 14:55 Surgical Pathology [PTH] Routine Date of Encounter: 06/29/18 - Discharge Diagnosis (1) Adjustment disorder with anxious mood Priority: Primary Status: Acute (2) Abdominal pain Status: Acute Qualifiers: Abdominal location: right upper quadrant Qualified Code(s): R10.11 - Right upper quadrant pain (3) Dilated bile duct Status: Acute (4) Anxiety Status: Acute (5) DM2 (diabetes mellitus, type 2) Priority: Secondary Status: Chronic 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 Farley is a 73 year old female - Time Spent with Patient Total time spent providing and/or coordinating discharge services: 34min Date of admission: 06/28/18 17:43 Primary care physician: Kalpesh Mc MD Consults: 06/28/18 16:00 Consult to Psychiatry [CONS] Routine Consulting Provider: Psych[facility] Reason consult: Other Other reason and/or additional details: Anxiety, adjustment disorder? Medical workup so far negative. Sees [facility] Psych outpatient Time Notified: 16:05 Call Completed: Yes - Constitutional Vitals: Temp Pulse Resp BP Pulse Ox 98.0 F 87 15 150/94 97 06/29/18 14:40 06/29/18 14:40 06/29/18 14:40 06/29/18 14:40 06/29/18 14:40 - Attending Attestation I examined this patient and my medical decision-making was reviewed with the Resident Physician on 06/29/18. I agree with the documented findings, disposition and treatment plan as described except to the extent set forth below. Ms Farley has been hospitalized for acute abdominal pain. She underwent further work up which was negative. She was evaluated by psychiatry and Klonopin restarted. She is afebrile and ready for discharge home with outpatient psych follow up. We will give her a couple days of Klonopin. Exam alert comfortable Mucus membranes dry Heart reg No wheeze abd soft Plan D/C home today.
[2018-06-29 14:43] VITALS: BP 150/94
--- NOTE | 2018-06-29 15:45 | Physician Discharge Referral ---
Home Health/Hosp Referral Info Transfer to: Home Health Provider in Charge Post Discharge: PCP - Diagnosis (1) Dilated bile duct Priority: Primary Status: Acute (2) Abdominal pain Priority: Secondary Status: Acute (3) Anxiety Priority: Secondary Status: Acute (4) DM2 (diabetes mellitus, type 2) Priority: Secondary Status: Acute - Respiratory Orders None Smoking Cessation: Smoking cessation has been advised. For more information, call the [place] Tobacco Quit Line at 8-693-FNTF-NOW. - Diet/Nutrition Diet/Nutrition Orders: Cardiac, No Concentrated Sweets - Activity Activity Orders: Up ad maría - Services Needed Following services are medically necessary services: Nursing, Home Health Aide - Transfer Medications Prescriptions: clonazePAM [Klonopin] 0.5 mg PO BID PRN 3 Days #6 tablet PRN Reason: Anxiety Sennosides/Docusate Sodium [Senna Plus] 1 each PO BID #30 tablet Ondansetron ODT [Zofran ODT] 4 mg SL Q6HR PRN #30 tab.rapdis PRN Reason: Nausea And Vomiting Home Medications: Buspirone HCl [Buspar] 10 mg PO BID 04/15/18 [History] Clopidogrel Bisulfate [Plavix] 75 mg PO DAILY 04/15/18 [History] Dicyclomine Hcl [Bentyl] 20 mg PO QID PRN 04/15/18 [History] Esomeprazole Magnesium [Nexium] 40 mg PO 04/15/18 [History] Fluticasone Propionate Nasal [Flonase] 120 spray NS 04/15/18 [History] Loratadine 04/15/18 [History] Aspirin [Adult Aspirin Regimen] 81 mg PO DAILY 06/27/18 [History] Baclofen [Lioresal] 10 mg PO TID PRN 06/27/18 [History] BuPROPion SR (12 HR) [Wellbutrin SR] 150 mg PO BID 06/27/18 [History] Gabapentin [Neurontin] 300 mg PO TID 06/27/18 [History] Losartan [Cozaar] 25 mg PO DAILY 06/27/18 [History] Metoprolol [Lopressor] 25 mg PO BID 06/27/18 [History] Mirtazapine 7.5 - 15 mg PO HS 06/27/18 [History] Omeprazole [PriLOSEC] 40 mg PO DAILY 06/27/18 [History] Rosuvastatin Calcium [Crestor] 10 mg PO DAILY 06/27/18 [History] SitaGLIPtin [Januvia] 100 mg PO DAILY 06/27/18 [History] Tramadol HCl [Ultram] 50 mg PO TID PRN 06/27/18 [History] Ondansetron ODT [Zofran ODT] 4 mg SL Q6HR PRN #30 tab.rapdis 06/29/18 [Rx] Sennosides/Docusate Sodium [Senna Plus] 1 each PO BID #30 tablet 06/29/18 [Rx] clonazePAM [Klonopin] 0.5 mg PO BID PRN 3 Days #6 tablet 06/29/18 [Rx] Allergies/Adverse Reactions: Allergy/AdvReac Type Severity Reaction Status Date / Time aspirin Allergy See Verified 04/15/18 10:01 Comments codeine Allergy See Verified 04/15/18 10:01 Comments morphine Allergy See Verified 04/15/18 10:01 Comments Penicillins [PCN] Allergy See Verified 04/15/18 10:01 Comments Certification: Further, I certify that my clinical findings support that this patient is homebound (i.e. absences from home require considerable and taxing effort and are for medical reasons or [employer] services or infrequently or short duration when for other reasons) because: Homebound Reason: Patient requires assistance of a person or device to safely leave home, Absences from home are contraindicated except to recieve medical care Attestation: My signature below is to certify that this patient is under my care and that I, or nurse practitioner, or a physician's executive assistant to general counsel working with me, has a [id number] encounter with this patient.
== END 2018-06-29 16:26 | disposition home health service (06) | DRG 446 ==
LOC: 3ANU 09:01 → EMEROOARM 09:01 → SUATTDRO 13:04 → 3ANU 14:08
PROVIDERS: ADMIT Internal Medicine Nephrology; ATTEND Internal Medicine
PROC: ENDOEBX (2018-06-27 14:30)

== ENCOUNTER 2019-06-07 09:35 | Observation (INO) ==
[2019-06-07 10:19] LABS: Basophils % 0.7 %; Eosinophils # 0.1 K/mcL (0.0-0.6); Eosinophils % 2.2 %; Hematocrit 39.4 % (35.3-44.9); Hemoglobin 12.4 g/dL (11.5-15.4); Immature Granulocytes % 0.2 % (0-4); Lymphocytes # 1.8 K/mcL (0.6-4.6); Lymphocytes % 45.1 %; Mean Corpuscular HGB Conc 31.5 g/dL (31.6-35.5); Mean Corpuscular Hemoglobin 25.4 pg (28.0-33.3); Mean Corpuscular Volume 80.7 fL (83.0-100.0); Mean Platelet Volume 8.8 fL (9.4-12.4); Monocytes # 0.4 K/mcL (0.0-1.3); Monocytes % 10.3 %; Neutrophils # 1.7 K/mcL (1.6-8.9); Platelet Count 232 K/mcL (140-400); Red Blood Count 4.88 M/mcL (3.82-4.97); Red Cell Distribution Width 15.7 % (11.5-14.5); Segmented Neutrophils % 41.5 %; White Blood Count 4.1 K/mcL (4.3-11.1)
[2019-06-07 10:21] LABS: INR 1.2; Prothrombin Time 13.1 Seconds (9.4-12.1)
[2019-06-07 10:24] LABS: Activated Partial Thrombo Time 32.7 Seconds (26.0-36.0)
[2019-06-07 10:39] LABS: Alanine Aminotransferase 55 Units/L (7-52); Albumin 4.5 g/dL (3.5-5.7); Albumin/Globulin Ratio 1.7 (1.1-2.2); Alkaline Phosphatase 89 Units/L (34-104); Aspartate Amino Transferase 66 Units/L (13-39); BUN/Creatinine Ratio 15 (6-26); Bilirubin,Direct 0.1 mg/dL (0.0-0.2); Bilirubin,Indirect 0.3 mg/dL (0.0-1.0); Bilirubin,Total 0.4 mg/dL (0.3-1.0); Blood Urea Nitrogen 8 mg/dL (8-23); Calcium 9.7 mg/dL (8.6-10.3); Carbon Dioxide 24 mEq/L (23-29); Chloride 104 mEq/L (98-107); Globulin 2.7 g/dL (2.4-3.5); Glucose 133 mg/dL (70-105); Lipase 52 Units/L (11-82); Osmolality,Calculated 286 (280-300); Potassium 4.2 mEq/L (3.5-5.1); Sodium 138 mEq/L (136-145); Total Protein 7.2 g/dL (6.4-8.9); Troponin I < 0.03 ng/mL (< 0.04); eGFR For African Americans > 60 (> 60); eGFR For Non-African Americans > 60 (> 60)
[2019-06-07 10:42] LABS: Bilirubin,Urine Negative (Negative); Blood,Urine Large (Negative); Clarity,Urine Clear (Clear); Color,Urine Yellow (Yellow); Glucose,Urine (UA) Normal (Normal); Ketones,Urine Negative (Negative); Leukocyte Esterase,Urine Small (Negative); Nitrite,Urine Negative (Negative); PH,Urine 6.5 pH Units (5.0-8.0); Protein,Urine Negative (Neg-Trace); Specific Gravity,Urine 1.018 (1.010-1.025); Urobilinogen,Urine Normal (Normal)
[2019-06-07 10:46] LABS: Bacteria,Urine None Seen per hpf (None-Few); Hyaline Casts,Urine None Seen per lpf (None-Few); RBC,Urine 0-3 per hpf (0-3); Squamous Epithelial Cell,Urine Many per lpf (None-Few); WBC,Urine 0-3 per hpf (0-3)
[2019-06-07] MEDS ORDERED: Naloxone 0.4 MG/ML INJ IVP PRN (12:25)
[2019-06-07] MEDS ORDERED: clonazePAM 0.5 MG TABLET PO PRN (12:27)
[2019-06-07] MEDS ORDERED: Baclofen 10 MG TABLET PO PRN (12:27)
[2019-06-07] MEDS ORDERED: clonazePAM 0.5 MG TABLET PO ONE (12:29)
[2019-06-07] MEDS ORDERED: *HR* Dextrose 50 % in Water (Syg) 50 ML SYRINGE IVP PRN (12:31)
[2019-06-07] MEDS ORDERED: Dextrose Gel 15 GM/37.5 ML TUBE PO PRN ×2 (12:31)
[2019-06-07] MEDS ORDERED: D5% in Water 1,000 ML IVC PRN (12:31)
[2019-06-07] MEDS ORDERED: Aspirin 325 MG TABLET PO ONE (13:55)
[2019-06-07 14:08] LABS: Estimated Average Glucose 171 mg/dl
[2019-06-07 14:23] LABS: Chol/HDL Ratio 2.6 (0-4.9); Cholesterol 105 mg/dL (< 200); HDL Cholesterol 41 mg/dL (40-59); LDL Cholesterol,Calculated 38 mg/dL (0-99); Triglycerides 131 mg/dL (< 150); Troponin I < 0.03 ng/mL (< 0.04)
[2019-06-07] MEDS: Gabapentin 300 MG CAPSULE PO SCH ×2 (14:45→20:21)
[2019-06-07] MEDS: Insulin LISPRO 300 UNITS/3 ML VIAL SQ SCH ×2 (14:47→15:16)
[2019-06-07] MEDS: *HR* Heparin 5,000 UNIT/ML VIAL SQ SCH (17:36)
[2019-06-07] MEDS ORDERED: Ondansetron 4 MG/2 ML VIAL IVP PRN (17:56)
[2019-06-07] MEDS ORDERED: Nitroglycerin 0.4 MG TAB.SUBL SL PRN (17:56)
[2019-06-07] MEDS ORDERED: Mirtazapine 15 MG TABLET PO SCH (21:00)
[2019-06-07] MEDS ORDERED: Insulin LISPRO 300 UNITS/3 ML VIAL SQ SCH (21:00)
[2019-06-08 03:36] LABS: Basophils % 0.4 %; Eosinophils # 0.1 K/mcL (0.0-0.6); Eosinophils % 2.2 %; Hemoglobin 12.1 g/dL (11.5-15.4); Immature Granulocytes % 0.2 % (0-4); Lymphocytes # 2.6 K/mcL (0.6-4.6); Lymphocytes % 51.6 %; Mean Corpuscular HGB Conc 31.8 g/dL (31.6-35.5); Mean Corpuscular Hemoglobin 25.7 pg (28.0-33.3); Mean Corpuscular Volume 80.9 fL (83.0-100.0); Mean Platelet Volume 9.3 fL (9.4-12.4); Monocytes # 0.5 K/mcL (0.0-1.3); Monocytes % 10.6 %; Neutrophils # 1.7 K/mcL (1.6-8.9); Platelet Count 222 K/mcL (140-400); Red Cell Distribution Width 15.4 % (11.5-14.5)
[2019-06-08 03:57] LABS: Albumin 4.2 g/dL (3.5-5.7); Albumin/Globulin Ratio 1.8 (1.1-2.2); Bilirubin,Direct 0.1 mg/dL (0.0-0.2); Bilirubin,Indirect 0.4 mg/dL (0.0-1.0); Bilirubin,Total 0.5 mg/dL (0.3-1.0); Globulin 2.4 g/dL (2.4-3.5); Total Protein 6.6 g/dL (6.4-8.9)
[2019-06-08 04:00] LABS: BUN/Creatinine Ratio 16 (6-26); Blood Urea Nitrogen 9 mg/dL (8-23); Calcium 9.2 mg/dL (8.6-10.3); Carbon Dioxide 25 mEq/L (23-29); Chloride 104 mEq/L (98-107); Glucose 130 mg/dL (70-105); Magnesium 1.7 mg/dL (1.6-2.6); Osmolality,Calculated 286 (280-300); Phosphorous 3.5 mg/dL (2.7-4.5); Sodium 138 mEq/L (136-145); eGFR For African Americans > 60 (> 60); eGFR For Non-African Americans > 60 (> 60)
[2019-06-08 04:44] LABS: Hepatitis B Surface Antigen Nonreactive (Nonreactive)
[2019-06-08 05:13] LABS: Hepatitis B Core IgM Nonreactive (Nonreactive)
[2019-06-08 05:14] LABS: Hepatitis C Virus Antibody Nonreactive (Nonreactive)
[2019-06-08] MEDS: *HR* Heparin 5,000 UNIT/ML VIAL SQ SCH (05:39)
[2019-06-08 07:01] LABS: Hepatitis A Antibody IgM Equivocal (Nonreactive)
[2019-06-08] MEDS: Insulin LISPRO 300 UNITS/3 ML VIAL SQ SCH ×2 (07:22→12:43)
[2019-06-08] MEDS ORDERED: Regadenoson 0.4 MG/5 ML SYRINGE IVP ONE (08:14)
[2019-06-08] MEDS ORDERED: Aspirin Enteric Coated 81 MG Tablet PO SCH (09:00)
[2019-06-08] MEDS ORDERED: BuPROPion SR (12 HR) 150 MG TABLET PO SCH (09:00)
[2019-06-08] MEDS: Gabapentin 300 MG CAPSULE PO SCH (10:34)
[2019-06-08 11:49] VITALS: BP 132/84
[2019-06-08] MEDS ORDERED: Acetaminophen 325 MG TABLET PO ONE (14:40)
== END 2019-06-08 16:09 | disposition home health service (06) ==
LOC: EMEROOARM 09:35 → 3BNU 09:35
PROVIDERS: ADMIT Internal Medicine; ATTEND Internal Medicine

== ENCOUNTER 2020-03-01 15:21 | Inpatient (IN) ==
[2020-03-01] MEDS ORDERED: Dexamethasone 4 MG/ML VIAL IVP ONE (16:19)
[2020-03-01 16:24] LABS: Basophils % 0.7 %; Eosinophils % 0.4 %; Hemoglobin 11.5 g/dL (11.5-15.4); Immature Granulocytes % 0.4 % (0-4); Lymphocytes # 1.2 K/mcL (0.6-4.6); Lymphocytes % 45.4 %; Mean Corpuscular HGB Conc 31.9 g/dL (31.6-35.5); Mean Corpuscular Hemoglobin 24.6 pg (28.0-33.3); Mean Corpuscular Volume 77.1 fL (83.0-100.0); Mean Platelet Volume 9.5 fL (9.4-12.4); Monocytes # 0.2 K/mcL (0.0-1.3); Monocytes % 7.3 %; Neutrophils # 1.3 K/mcL (1.6-8.9); Platelet Count 156 K/mcL (140-400); Red Blood Count 4.67 M/mcL (3.82-4.97); Red Cell Distribution Width 15.8 % (11.5-14.5); Segmented Neutrophils % 45.8 %; White Blood Count 2.7 K/mcL (4.3-11.1)
[2020-03-01 16:27] LABS: INR 1.3; Prothrombin Time 15.3 Seconds (9.4-12.1)
[2020-03-01 16:28] LABS: Activated Partial Thrombo Time 43.3 Seconds (26.0-36.0)
[2020-03-01 16:43] LABS: Alanine Aminotransferase 53 Units/L (7-52); Albumin 4.2 g/dL (3.5-5.7); Albumin/Globulin Ratio 1.4 (1.1-2.2); Alkaline Phosphatase 73 Units/L (34-104); Aspartate Amino Transferase 85 Units/L (13-39); BUN/Creatinine Ratio 33 (6-26); Bilirubin,Direct 0.2 mg/dL (0.0-0.2); Bilirubin,Indirect 0.3 mg/dL (0.0-1.0); Bilirubin,Total 0.5 mg/dL (0.3-1.0); Blood Urea Nitrogen 15 mg/dL (8-23); C-Reactive Protein 36 mg/L (Less than 10); Calcium 8.9 mg/dL (8.6-10.3); Carbon Dioxide 23 mEq/L (23-29); Chloride 100 mEq/L (98-107); Glucose 129 mg/dL (70-105); Lactate Dehydrogenase 163 Units/L (140-271); Magnesium 1.4 mg/dL (1.6-2.6); Osmolality,Calculated 283 (280-300); Potassium 3.4 mEq/L (3.5-5.1); Sodium 135 mEq/L (136-145); Total Protein 7.2 g/dL (6.4-8.9); Troponin I < 0.03 ng/mL (< 0.04); eGFR For African Americans > 60 (> 60); eGFR For Non-African Americans > 60 (> 60)
[2020-03-01 17:00] LABS: Ferritin 153 ng/mL (10-120)
[2020-03-01] MEDS ORDERED: Potassium Phosphate 44 MEQ in 0.9 % Sodium Chloride 250 ML IVPB ONE (17:15)
[2020-03-01] MEDS ORDERED: Azithromycin 500 MG in 0.9 % Sodium Chloride 250 ML IVPB ONE (18:30)
[2020-03-01] MEDS ORDERED: levoFLOXacin 750 MG/150 ML 750 MG/150 ML BAG IVPB ONE (18:30)
[2020-03-01] MEDS ORDERED: Naloxone 0.4 MG/ML INJ IVP PRN (19:44)
[2020-03-01] MEDS ORDERED: Nitroglycerin 0.4 MG TAB.SUBL SL PRN (19:50)
[2020-03-01] MEDS ORDERED: D5% in Water 1,000 ML IVC PRN (19:51)
[2020-03-01] MEDS ORDERED: Dextrose Gel 15 GM/37.5 ML TUBE PO PRN ×2 (19:51)
[2020-03-01] MEDS ORDERED: *HR* Dextrose 50 % in Water (Vial) 50 ML VIAL IVP PRN (19:51)
[2020-03-01] MEDS: *HR* LORazepam 0.5 MG TABLET PO PRN (23:32)
[2020-03-01] MEDS: Insulin LISPRO 300 UNITS/3 ML VIAL SUBQ SCH (23:33)
[2020-03-02] MEDS ORDERED: *HR* Heparin 5,000 UNIT/ML VIAL SQ SCH (06:00)
[2020-03-02] MEDS: *HR* Enoxaparin 40 MG/0.4 ML SYRINGE SQ SCH (06:06)
[2020-03-02] MEDS: Doxycycline 100 MG in 0.9 % Sodium Chloride Mini Bag 100 ML IVPB SCH ×2 (06:06→17:16)
[2020-03-02] MEDS: Dexamethasone Sodium Phos/PF 10 MG/ML VIAL IVP SCH (07:40)
[2020-03-02 09:38] LABS: Basophils % 0.3 %; Hemoglobin 11.3 g/dL (11.5-15.4); Immature Granulocytes % 0.6 % (0-4); Lymphocytes # 1.3 K/mcL (0.6-4.6); Lymphocytes % 41.6 %; Mean Corpuscular HGB Conc 32.3 g/dL (31.6-35.5); Mean Corpuscular Hemoglobin 24.6 pg (28.0-33.3); Mean Corpuscular Volume 76.3 fL (83.0-100.0); Mean Platelet Volume 9.7 fL (9.4-12.4); Monocytes # 0.2 K/mcL (0.0-1.3); Monocytes % 6.5 %; Neutrophils # 1.6 K/mcL (1.6-8.9); Platelet Count 182 K/mcL (140-400); Red Blood Count 4.59 M/mcL (3.82-4.97); Red Cell Distribution Width 15.8 % (11.5-14.5); White Blood Count 3.1 K/mcL (4.3-11.1)
[2020-03-02] MEDS: Loratadine 10 MG TABLET PO SCH (09:41)
[2020-03-02 09:44] LABS: INR 1.5; Prothrombin Time 17.1 Seconds (9.4-12.1)
[2020-03-02] MEDS: Insulin LISPRO 300 UNITS/3 ML VIAL SUBQ SCH ×4 (09:46→20:54)
[2020-03-02 10:04] LABS: BUN/Creatinine Ratio 33 (6-26); Blood Urea Nitrogen 14 mg/dL (8-23); Calcium 8.9 mg/dL (8.6-10.3); Carbon Dioxide 18 mEq/L (23-29); Chloride 103 mEq/L (98-107); Glucose 151 mg/dL (70-105); Osmolality,Calculated 285 (280-300); Potassium 3.7 mEq/L (3.5-5.1); Sodium 136 mEq/L (136-145); eGFR For African Americans > 60 (> 60); eGFR For Non-African Americans > 60 (> 60)
[2020-03-02 10:26] LABS: Poikilocytosis 1+ (Not Present)
[2020-03-02 10:27] LABS: Anisocytosis 1+ (Not Present); Microcytosis Present (Not Present); Ovalocytes 1+ (Not Present); Platelet Estimate Slight Decrease (Normal)
[2020-03-02] MEDS: *HR* LORazepam 0.5 MG TABLET PO PRN (11:58)
[2020-03-02] MEDS: Acetaminophen 325 MG TABLET PO PRN (14:33)
[2020-03-02] MEDS: Ipratropium 1 PUFF INHALER IH SCH ×2 (20:08→23:20)
[2020-03-02] MEDS: Gabapentin 300 MG CAPSULE PO SCH (20:50)
[2020-03-02] MEDS: Mirtazapine 15 MG TABLET PO SCH (20:52)
[2020-03-02] MEDS: clonazePAM 0.5 MG TABLET PO PRN (20:52)
[2020-03-02] MEDS: Baclofen 10 MG TABLET PO PRN (20:53)
[2020-03-02] MEDS: Furosemide 40 MG/4 ML VIAL IVP SCH (20:54)
[2020-03-03] MEDS: Ipratropium 1 PUFF INHALER IH SCH ×6 (04:16→23:22)
[2020-03-03] MEDS: Doxycycline 100 MG in 0.9 % Sodium Chloride Mini Bag 100 ML IVPB SCH (05:03)
[2020-03-03] MEDS: *HR* Enoxaparin 40 MG/0.4 ML SYRINGE SQ SCH (05:04)
[2020-03-03 05:22] LABS: Hematocrit 36.4 % (35.3-44.9); Hemoglobin 11.8 g/dL (11.5-15.4); Immature Granulocytes % 0.4 % (0-4); Lymphocytes # 1.7 K/mcL (0.6-4.6); Lymphocytes % 35.8 %; Mean Corpuscular HGB Conc 32.4 g/dL (31.6-35.5); Mean Corpuscular Hemoglobin 25.6 pg (28.0-33.3); Mean Platelet Volume 10.4 fL (9.4-12.4); Monocytes # 0.3 K/mcL (0.0-1.3); Monocytes % 5.5 %; Platelet Count 233 K/mcL (140-400); Red Blood Count 4.61 M/mcL (3.82-4.97); Red Cell Distribution Width 15.8 % (11.5-14.5); Segmented Neutrophils % 58.3 %
[2020-03-03 05:25] LABS: Fibrinogen 358 mg/dL (169-393)
[2020-03-03 05:28] LABS: D-Dimer 331 ng/mLFEU (0-500); Neutrophils # 2.7 K/mcL (1.6-8.9); White Blood Count 4.7 K/mcL (4.3-11.1)
[2020-03-03 05:41] LABS: Alanine Aminotransferase 55 Units/L (7-52); Albumin 4.2 g/dL (3.5-5.7); Albumin/Globulin Ratio 1.4 (1.1-2.2); Alkaline Phosphatase 71 Units/L (34-104); Aspartate Amino Transferase 84 Units/L (13-39); BUN/Creatinine Ratio 37 (6-26); Bilirubin,Direct 0.2 mg/dL (0.0-0.2); Bilirubin,Indirect 0.4 mg/dL (0.0-1.0); Bilirubin,Total 0.6 mg/dL (0.3-1.0); Blood Urea Nitrogen 16 mg/dL (8-23); Carbon Dioxide 20 mEq/L (23-29); Chloride 101 mEq/L (98-107); Glucose 139 mg/dL (70-105); Magnesium 1.4 mg/dL (1.6-2.6); Osmolality,Calculated 283 (280-300); Potassium 3.7 mEq/L (3.5-5.1); Sodium 135 mEq/L (136-145); Total Protein 7.2 g/dL (6.4-8.9); eGFR For African Americans > 60 (> 60); eGFR For Non-African Americans > 60 (> 60)
[2020-03-03] MEDS ORDERED: NON-FORMULARY MEDICATION 1 EACH EACH (Omeprazole [Prilosec] 40 MG) PO SCH (09:00)
[2020-03-03 09:08] LABS: Estimated Average Glucose 154 mg/dl
[2020-03-03] MEDS: BuPROPion SR (12 HR) 150 MG TABLET PO SCH (09:49)
[2020-03-03] MEDS: clonazePAM 0.5 MG TABLET PO PRN ×2 (09:49→21:54)
[2020-03-03] MEDS: Aspirin Enteric Coated 81 MG Tablet PO SCH (09:50)
[2020-03-03] MEDS: Loratadine 10 MG TABLET PO SCH (09:50)
[2020-03-03] MEDS: Gabapentin 300 MG CAPSULE PO SCH ×3 (09:50→21:53)
[2020-03-03] MEDS: Furosemide 40 MG/4 ML VIAL IVP SCH ×2 (09:51→21:55)
[2020-03-03] MEDS: Insulin LISPRO 300 UNITS/3 ML VIAL SUBQ SCH ×4 (09:51→21:30)
[2020-03-03] MEDS: Dexamethasone Sodium Phos/PF 10 MG/ML VIAL IVP SCH (09:51)
[2020-03-03] MEDS: *HR* LORazepam 0.5 MG TABLET PO PRN (17:54)
[2020-03-03] MEDS: Baclofen 10 MG TABLET PO PRN (21:53)
[2020-03-03] MEDS: Acetaminophen 325 MG TABLET PO PRN (21:53)
[2020-03-03] MEDS: Doxycycline 100 MG CAPSULE PO SCH (21:55)
[2020-03-03] MEDS: Mirtazapine 15 MG TABLET PO SCH (22:01)
[2020-03-03 23:43] LABS: ABG Base Excess 1 mEq/L (-2 to 3); ABG HCO3 24 mEq/L (21-27); ABG Oxygen Saturation 91 % (95-98); ABG PCO2 34 mmHg (35-45); ABG PH 7.46 pH Units (7.32-7.45); ABG PO2 58 mmHg (85-104); ABG TCO2 25 mEq/L (20-26)
[2020-03-04 00:36] LABS: Bilirubin,Urine Negative (Negative); Blood,Urine Negative (Negative); Clarity,Urine Clear (Clear); Color,Urine Yellow (Yellow); Glucose,Urine (UA) Normal (Normal); Ketones,Urine Trace mg/dL (Negative); Leukocyte Esterase,Urine Negative (Negative); Nitrite,Urine Negative (Negative); Protein,Urine Trace mg/dL (Neg-Trace); Specific Gravity,Urine 1.017 (1.010-1.025)
[2020-03-04 03:08] LABS: Basophils % 0.2 %; Immature Granulocytes % 0.4 % (0-4); Lymphocytes # 1.4 K/mcL (0.6-4.6); Mean Corpuscular HGB Conc 32.4 g/dL (31.6-35.5); Mean Corpuscular Hemoglobin 25.5 pg (28.0-33.3); Mean Corpuscular Volume 78.6 fL (83.0-100.0); Mean Platelet Volume 9.6 fL (9.4-12.4); Monocytes # 0.3 K/mcL (0.0-1.3); Monocytes % 6.7 %; Neutrophils # 2.9 K/mcL (1.6-8.9); Platelet Count 253 K/mcL (140-400); Red Blood Count 4.71 M/mcL (3.82-4.97); Red Cell Distribution Width 15.8 % (11.5-14.5); Segmented Neutrophils % 61.7 %; White Blood Count 4.6 K/mcL (4.3-11.1)
[2020-03-04 03:20] LABS: D-Dimer < 215 ng/mLFEU (0-500)
[2020-03-04 03:28] LABS: Alanine Aminotransferase 53 Units/L (7-52); Albumin 4.2 g/dL (3.5-5.7); Albumin/Globulin Ratio 1.3 (1.1-2.2); Alkaline Phosphatase 81 Units/L (34-104); Aspartate Amino Transferase 65 Units/L (13-39); BUN/Creatinine Ratio 47 (6-26); Bilirubin,Direct 0.2 mg/dL (0.0-0.2); Bilirubin,Indirect 0.4 mg/dL (0.0-1.0); Bilirubin,Total 0.6 mg/dL (0.3-1.0); Blood Urea Nitrogen 24 mg/dL (8-23); Calcium 9.3 mg/dL (8.6-10.3); Carbon Dioxide 24 mEq/L (23-29); Chloride 98 mEq/L (98-107); Fibrinogen 413 mg/dL (169-393); Globulin 3.2 g/dL (2.4-3.5); Glucose 113 mg/dL (70-105); Magnesium 1.6 mg/dL (1.6-2.6); Osmolality,Calculated 283 (280-300); Potassium 3.4 mEq/L (3.5-5.1); Sodium 134 mEq/L (136-145); Total Protein 7.4 g/dL (6.4-8.9); eGFR For African Americans > 60 (> 60); eGFR For Non-African Americans > 60 (> 60)
[2020-03-04] MEDS: Ipratropium 1 PUFF INHALER IH SCH ×6 (03:56→23:35)
[2020-03-04] MEDS: *HR* Enoxaparin 40 MG/0.4 ML SYRINGE SQ SCH (05:04)
[2020-03-04] MEDS: Insulin LISPRO 300 UNITS/3 ML VIAL SUBQ SCH ×4 (07:37→22:50)
[2020-03-04] MEDS: Dexamethasone Sodium Phos/PF 10 MG/ML VIAL IVP SCH (08:02)
[2020-03-04] MEDS: Loratadine 10 MG TABLET PO SCH (08:03)
[2020-03-04] MEDS: Gabapentin 300 MG CAPSULE PO SCH ×3 (08:03→21:44)
[2020-03-04] MEDS: Doxycycline 100 MG CAPSULE PO SCH ×2 (08:03→21:44)
[2020-03-04] MEDS: BuPROPion SR (12 HR) 150 MG TABLET PO SCH (08:03)
[2020-03-04] MEDS: Furosemide 40 MG/4 ML VIAL IVP SCH ×2 (08:03→21:45)
[2020-03-04] MEDS: Aspirin Enteric Coated 81 MG Tablet PO SCH (08:03)
[2020-03-04] MEDS ORDERED: Benzonatate 100 MG CAPSULE PO PRN (11:43)
[2020-03-04] MEDS ORDERED: 0.9 % Sodium Chloride 250 ML IVC ONE (15:49)
[2020-03-04] MEDS: clonazePAM 0.5 MG TABLET PO PRN (21:44)
[2020-03-04] MEDS: Mirtazapine 15 MG TABLET PO SCH (21:44)
[2020-03-04] MEDS: Baclofen 10 MG TABLET PO PRN (21:44)
[2020-03-04] MEDS: *HR* LORazepam 0.5 MG TABLET PO PRN (23:11)
[2020-03-05 04:13] VITALS: BP 118/64
[2020-03-05] MEDS: Ipratropium 1 PUFF INHALER IH SCH ×5 (04:26→20:11)
[2020-03-05] MEDS: *HR* Enoxaparin 40 MG/0.4 ML SYRINGE SQ SCH (06:10)
[2020-03-05] MEDS: Insulin LISPRO 300 UNITS/3 ML VIAL SUBQ SCH ×3 (07:59→19:14)
[2020-03-05] MEDS: Loratadine 10 MG TABLET PO SCH (08:06)
[2020-03-05] MEDS: BuPROPion SR (12 HR) 150 MG TABLET PO SCH (08:06)
[2020-03-05] MEDS: Aspirin Enteric Coated 81 MG Tablet PO SCH (08:06)
[2020-03-05] MEDS: Dexamethasone Sodium Phos/PF 10 MG/ML VIAL IVP SCH (08:07)
[2020-03-05] MEDS: Gabapentin 300 MG CAPSULE PO SCH ×2 (08:07→15:01)
[2020-03-05] MEDS: Doxycycline 100 MG CAPSULE PO SCH (08:07)
[2020-03-05] MEDS: *HR* LORazepam 0.5 MG TABLET PO PRN (11:21)
== END 2020-03-05 19:10 | DRG 177 ==
LOC: 2NENU 15:21 → EMEROOARM 15:21 → SUATTDRO 19:56 → 2NENU 20:36
PROVIDERS: ADMIT Internal Medicine; ATTEND General Practice

== ENCOUNTER 2020-05-30 21:16 | Inpatient (IN) ==
[2020-05-30] MEDS ORDERED: Acetaminophen 325 MG TABLET PO ONE (21:55)
[2020-05-30 22:53] LABS: Basophils # 0.1 K/mcL (0.0-0.2); Basophils % 0.8 %; Eosinophils # 0.2 K/mcL (0.0-0.6); Eosinophils % 3.5 %; Hematocrit 35.2 % (35.3-44.9); Immature Granulocytes % 0.2 % (0-4); Lymphocytes # 3.2 K/mcL (0.6-4.6); Lymphocytes % 48.8 %; Mean Corpuscular HGB Conc 31.3 g/dL (31.6-35.5); Mean Corpuscular Hemoglobin 25.1 pg (28.0-33.3); Mean Corpuscular Volume 80.2 fL (83.0-100.0); Mean Platelet Volume 8.8 fL (9.4-12.4); Monocytes # 0.7 K/mcL (0.0-1.3); Monocytes % 10.8 %; Neutrophils # 2.3 K/mcL (1.6-8.9); Platelet Count 204 K/mcL (140-400); Red Blood Count 4.39 M/mcL (3.82-4.97); Red Cell Distribution Width 16.5 % (11.5-14.5); Segmented Neutrophils % 35.9 %; White Blood Count 6.5 K/mcL (4.3-11.1)
[2020-05-30 23:00] LABS: INR 1.3; Prothrombin Time 14.5 Seconds (9.4-12.1)
[2020-05-30 23:03] LABS: Activated Partial Thrombo Time 32.9 Seconds (26.0-36.0)
[2020-05-30 23:12] LABS: BUN/Creatinine Ratio 28 (6-26); Blood Urea Nitrogen 16 mg/dL (8-23); Calcium 9.4 mg/dL (8.6-10.3); Carbon Dioxide 23 mEq/L (23-29); Chloride 103 mEq/L (98-107); Glucose 133 mg/dL (70-105); Osmolality,Calculated 287 (280-300); Potassium 3.9 mEq/L (3.5-5.1); Sodium 137 mEq/L (136-145); eGFR For African Americans > 60 (> 60); eGFR For Non-African Americans > 60 (> 60)
[2020-05-30] MEDS ORDERED: *HR* Heparin 5,000 UNIT/ML VIAL IVP ONE (23:33)
[2020-05-30] MEDS ORDERED: *HR* Heparin 5,000 UNIT/ML VIAL IVP PRN ×2 (23:33)
[2020-05-30] MEDS ORDERED: Heparin 25,000UNIT/250ML 1/2NS 25,000 UNIT/250 ML IV.SOLN IVC SCH (23:45)
[2020-05-31] MEDS ORDERED: Dextrose Gel 15 GM/37.5 ML TUBE PO PRN ×2 (02:56)
[2020-05-31] MEDS ORDERED: D5% in Water 1,000 ML IVC PRN (02:56)
[2020-05-31] MEDS ORDERED: *HR* Dextrose 50 % in Water (Vial) 50 ML VIAL IVP PRN (02:56)
[2020-05-31] MEDS ORDERED: Naloxone 0.4 MG/ML INJ IVP PRN (02:57)
[2020-05-31] MEDS ORDERED: Ondansetron 4 MG/2 ML VIAL IVP PRN (02:57)
[2020-05-31 03:33] LABS: Bilirubin,Urine Negative (Negative); Blood,Urine Negative (Negative); Clarity,Urine Clear (Clear); Color,Urine Light-Yellow (Yellow); Glucose,Urine (UA) Normal (Normal); Ketones,Urine Negative (Negative); Specific Gravity,Urine 1.025 (1.010-1.025)
[2020-05-31 03:34] LABS: Leukocyte Esterase,Urine Negative (Negative); Nitrite,Urine Negative (Negative); Protein,Urine Trace mg/dL (Neg-Trace); Urobilinogen,Urine Normal (Normal)
[2020-05-31] MEDS ORDERED: Acetaminophen IV 1,000 MG/100 ML BAG IVPB ONE (03:36)
[2020-05-31] MEDS ORDERED: tiZANidine 4 MG TABLET PO ONE (03:40)
[2020-05-31] MEDS: Famotidine 20 MG/2 ML VIAL IVP SCH ×2 (04:37→16:51)
[2020-05-31 07:12] LABS: Hematocrit 31.9 % (35.3-44.9); Hemoglobin 9.8 g/dL (11.5-15.4); Mean Corpuscular HGB Conc 30.7 g/dL (31.6-35.5); Mean Corpuscular Hemoglobin 24.4 pg (28.0-33.3); Mean Corpuscular Volume 79.4 fL (83.0-100.0); Mean Platelet Volume 9.4 fL (9.4-12.4); Platelet Count 176 K/mcL (140-400); Red Blood Count 4.02 M/mcL (3.82-4.97); Red Cell Distribution Width 16.7 % (11.5-14.5); White Blood Count 5.4 K/mcL (4.3-11.1)
[2020-05-31 07:17] LABS: Estimated Average Glucose 151 mg/dl; Hemoglobin A1C 6.9 %
[2020-05-31 07:21] LABS: Heparin anti-factor XA UFH 0.58 IU/mL (0.30-0.70); INR 1.3
[2020-05-31 07:32] LABS: % Iron Saturation 10 % (15-50); BUN/Creatinine Ratio 36 (6-26); Blood Urea Nitrogen 18 mg/dL (8-23); Calcium 9.4 mg/dL (8.6-10.3); Carbon Dioxide 24 mEq/L (23-29); Chloride 103 mEq/L (98-107); Chol/HDL Ratio 2.6 (0-4.9); Cholesterol 89 mg/dL (< 200); Glucose 136 mg/dL (70-105); HDL Cholesterol 34 mg/dL (40-59); Iron 40 mcg/dL (50-170); LDL Cholesterol,Calculated 32 mg/dL (< 100); Magnesium 1.4 mg/dL (1.6-2.6); Osmolality,Calculated 286 (280-300); Potassium 3.8 mEq/L (3.5-5.1); Sodium 136 mEq/L (136-145); Transferrin 296 mg/dL (203-362); Triglycerides 116 mg/dL (< 150); eGFR For African Americans > 60 (> 60); eGFR For Non-African Americans > 60 (> 60)
[2020-05-31 07:45] LABS: Ferritin 22 ng/mL (10-120)
[2020-05-31] MEDS: Insulin LISPRO 300 UNITS/3 ML VIAL SUBQ SCH ×4 (08:31→20:54)
[2020-05-31 08:56] LABS: Vitamin B12 248 pg/mL (250-1100)
[2020-05-31 09:36] LABS: Vitamin D 25 Hydroxy 40 ng/mL (30-80)
[2020-05-31] MEDS ORDERED: Baclofen 10 MG TABLET PO PRN (15:16)
[2020-05-31] MEDS: BuPROPion SR (12 HR) 150 MG TABLET PO SCH (16:36)
[2020-05-31] MEDS: Aspirin Enteric Coated 81 MG Tablet PO SCH (16:36)
[2020-05-31] MEDS: Gabapentin 300 MG CAPSULE PO SCH (20:55)
[2020-05-31] MEDS: Mirtazapine 15 MG TABLET PO SCH (20:55)
[2020-06-01] MEDS: Famotidine 20 MG/2 ML VIAL IVP SCH ×2 (05:11→17:04)
[2020-06-01 07:13] LABS: BUN/Creatinine Ratio 20 (6-26); Blood Urea Nitrogen 9 mg/dL (8-23); Calcium 9.4 mg/dL (8.6-10.3); Carbon Dioxide 24 mEq/L (23-29); Chloride 103 mEq/L (98-107); Glucose 133 mg/dL (70-105); Osmolality,Calculated 283 (280-300); Potassium 3.9 mEq/L (3.5-5.1); Sodium 136 mEq/L (136-145); eGFR For African Americans > 60 (> 60); eGFR For Non-African Americans > 60 (> 60)
[2020-06-01] MEDS: Insulin LISPRO 300 UNITS/3 ML VIAL SUBQ SCH ×4 (08:15→21:04)
[2020-06-01] MEDS: Gabapentin 300 MG CAPSULE PO SCH ×3 (08:17→21:01)
[2020-06-01] MEDS: Aspirin Enteric Coated 81 MG Tablet PO SCH (08:18)
[2020-06-01] MEDS: BuPROPion SR (12 HR) 150 MG TABLET PO SCH (08:18)
[2020-06-01] MEDS: Fluticasone Propionate Nasal 50 MCG/SPRAY BOTTLE NS SCH (08:20)
[2020-06-01] MEDS: clonazePAM 0.5 MG TABLET PO PRN (14:30)
[2020-06-01] MEDS: *HR* OxyCODONE/APAP 5/325 TABLET PO PRN (16:33)
[2020-06-01] MEDS: *HR* Heparin 5,000 UNIT/ML VIAL SQ SCH (16:33)
[2020-06-01] MEDS: Mirtazapine 15 MG TABLET PO SCH (21:32)
[2020-06-02] MEDS ORDERED: Acetaminophen IV 1,000 MG/100 ML BAG IVPB ONE (03:39)
[2020-06-02] MEDS ORDERED: *HR* LORazepam 2 MG/ML VIAL IVP ONE (05:24)
[2020-06-02] MEDS ORDERED: Haloperidol Lactate 5 MG/ML VIAL IVP ONE (05:36)
[2020-06-02] MEDS: Famotidine 20 MG/2 ML VIAL IVP SCH (05:51)
[2020-06-02] MEDS: *HR* Heparin 5,000 UNIT/ML VIAL SQ SCH ×2 (05:51→17:41)
[2020-06-02] MEDS ORDERED: Acetaminophen 325 MG TABLET PO ONE (06:33)
[2020-06-02] MEDS: Insulin LISPRO 300 UNITS/3 ML VIAL SUBQ SCH ×4 (07:32→21:38)
[2020-06-02] MEDS: BuPROPion SR (12 HR) 150 MG TABLET PO SCH (08:08)
[2020-06-02] MEDS: Gabapentin 300 MG CAPSULE PO SCH ×3 (08:08→21:33)
[2020-06-02] MEDS: Aspirin Enteric Coated 81 MG Tablet PO SCH (08:08)
[2020-06-02] MEDS: Fluticasone Propionate Nasal 50 MCG/SPRAY BOTTLE NS SCH (08:17)
[2020-06-02 08:55] LABS: Bilirubin,Urine Negative (Negative); Blood,Urine Negative (Negative); Clarity,Urine Clear (Clear); Color,Urine Yellow (Yellow); Glucose,Urine (UA) Normal (Normal); Ketones,Urine Trace mg/dL (Negative); Leukocyte Esterase,Urine Negative (Negative); Nitrite,Urine Negative (Negative); PH,Urine 6.5 pH Units (5.0-8.0); Protein,Urine Trace mg/dL (Neg-Trace); Specific Gravity,Urine 1.021 (1.010-1.025); Urobilinogen,Urine Normal (Normal)
[2020-06-02] MEDS: Mirtazapine 15 MG TABLET PO SCH (21:35)
[2020-06-02] MEDS: *HR* OxyCODONE/APAP 5/325 TABLET PO PRN (21:35)
[2020-06-02] MEDS: clonazePAM 0.5 MG TABLET PO PRN (21:38)
[2020-06-02] MEDS: Famotidine 20 MG TABLET PO SCH (21:39)
[2020-06-03] MEDS: *HR* Heparin 5,000 UNIT/ML VIAL SQ SCH ×2 (05:21→17:17)
[2020-06-03] MEDS: *HR* OxyCODONE/APAP 5/325 TABLET PO PRN ×3 (05:21→18:32)
[2020-06-03] MEDS: Insulin LISPRO 300 UNITS/3 ML VIAL SUBQ SCH ×4 (08:16→20:17)
[2020-06-03] MEDS: BuPROPion SR (12 HR) 150 MG TABLET PO SCH (08:58)
[2020-06-03] MEDS: Aspirin Enteric Coated 81 MG Tablet PO SCH (08:58)
[2020-06-03] MEDS: Gabapentin 300 MG CAPSULE PO SCH ×3 (09:00→20:18)
[2020-06-03] MEDS: Famotidine 20 MG TABLET PO SCH ×2 (09:00→20:18)
[2020-06-03] MEDS: Fluticasone Propionate Nasal 50 MCG/SPRAY BOTTLE NS SCH (09:01)
[2020-06-03 18:43] VITALS: BP 114/61; PULSE 82; TEMP 98.2; O2SAT 96
[2020-06-03] MEDS: Mirtazapine 15 MG TABLET PO SCH (20:18)
[2020-06-03 21:53] LABS: Adenovirus Not Detected (Not Detect); Bordetella Pertussis Not Detected (Not Detect); Chlamydophila pneumoniae Not Detected (Not Detect); Coronavirus 229E Not Detected (Not Detect); Coronavirus HKU1 Not Detected (Not Detect); Coronavirus NL63 Not Detected (Not Detect); Coronavirus OC43 Not Detected (Not Detect); Human Metapneumovirus Not Detected (Not Detect); Human Rhinovirus/Enterovirus Not Detected (Not Detect); Influenza A Subtype 2009 H1 Not Detected (Not Detect); Influenza B Not Detected (Not Detect); Mycoplasma pneumoniae Not Detected (Not Detect); Parainfluenza Virus 1 Not Detected (Not Detect); Parainfluenza Virus 2 Not Detected (Not Detect); Parainfluenza Virus 3 Not Detected (Not Detect); Parainfluenza Virus 4 Not Detected (Not Detect); Respiratory Syncytial Virus Not Detected (Not Detect); SARS-CoV-2 Not Detected (Not Detect)
== END 2020-06-03 22:58 | disposition other institution (70) | DRG 556 ==
LOC: 3BNU 21:16 → EMEROOARM 21:16 → SUATTDRO 05-31 00:22 → 3BNU 05-31 01:00
PROVIDERS: ADMIT Internal Medicine; ATTEND Internal Medicine